=== PATIENT | male | born 1955 | race Caucasian/White ===

== ENCOUNTER 2016-10-08 13:06 | Inpatient (IN) | payer SELFPAY ==
[~2016-10-08] VITALS: Ht 188 cm; Wt 104.5 kg
[2016-10-08] MEDS ORDERED: ONDANSETRON PF 4 MG/2 ML VIAL. IV ONE (13:45)
[2016-10-08] MEDS ORDERED: fentaNYL PF VIAL 100 MCG/2 ML VIAL IV PRN ×2 (13:45→15:30)
[2016-10-08 14:02] LABS: BASO # 0.1 x10^3/uL (0.0-0.2); BASO % 1 % (0-3); EOS % 3 % (0-3); HEMATOCRIT 39.2 % (39.0-53.0); HEMOGLOBIN 13.6 g/dL (13.0-17.5); LYMPH # 1.1 x10^3/uL (1.0-4.8); LYMPH % 23 % (24-48); MEAN CORPUSCULAR HEMOGLOBIN 34 pg (25-35); MEAN CORPUSCULAR HGB CONC 35 g/dL (31-37); MEAN CORPUSCULAR VOLUME 99 fL (79-100); MONO % 12 % (0-9); NEUT % 62 % (31-73); PLATELET COUNT 78 x10^3/uL (140-400); RED BLOOD COUNT 3.96 x10^6/uL (4.30-5.70); RED CELL DISTRIBUTION WIDTH 14.3 % (11.5-14.5)
[2016-10-08 14:09] LABS: INR 1.3 (0.8-1.1); PROTHROMBIN TIME PATIENT 15.3 SEC (11.7-14.0)
[2016-10-08 14:16] LABS: CALCIUM 8.1 mg/dL (8.5-10.1); CREATININE 0.8 mg/dL (0.7-1.3); GFR 97.6; POTASSIUM 4.1 mmol/L (3.5-5.1)
[2016-10-08 14:24] LABS: ALBUMIN 2.6 g/dL (3.4-5.0); ALBUMIN/GLOBULIN RATIO 0.7 (1.0-1.7); TOTAL BILIRUBIN 1.9 mg/dL (0.2-1.0); TOTAL PROTEIN 6.4 g/dL (6.4-8.2)
--- NOTE | 2016-10-08 14:27 | RAD ---
Indication abdominal distention and pain. Duration of symptoms several weeks. A single view of the chest as well as flat and upright films of the abdomen were obtained. Imaging, particularly of the abdomen, is limited by virtue of patient body habitus. Heart size is normal. The lungs are clear of acute infiltrates. There are calcified left hilar lymph nodes. There is no pleural fluid or pneumothorax. There is no free air. The abdominal gas pattern is unremarkable. There are scattered densities in the abdomen likely reflecting barium in colonic diverticula. IMPRESSION: No acute finding seen in the chest or abdomen on plain films.
[2016-10-08] MEDS ORDERED: ONDANSETRON PF 4 MG/2 ML VIAL. IV PRN (15:30)
--- NOTE | 2016-10-08 15:33 | PDOC1 ---
History and Physical Date of Admission Date of Admission DATE: 10/08/16 TIME: 15:25 Identification/Chief Complaint Chief Complaint big abdomen Problems: Source Source: Caregiver, Chart review, Patient History of Present Illness History of Present Illness 61 y.o male, drinking "all his life", 6 beers a day, follows at [facility] but has never seen a GI, admitted for tense ascites, onset 2 mos ago,. NO meds at home, CT scan done outside (I have personally reviewed), showed: extensive ascites, no bowel inflammatory findings, mid sigmoid diverticulosis but no itis, Pt actually wants to go home as soon as he gets the tap, LEgs have piiting edema, rather new to him, also claims no "muscle mass" in arms. HAd a heavy discussion with him about his alcoholism, complications, lack of TRIXIE that has oncotic pressure etc, ALl these seemed news to him. Dtr at bedside VS ok Did note gum bleeding when asked, platelets 70s, Hgb ok INR 1.3 Past Medical History Cardiovascular: No pertinent hx Pulmonary: No pertinent hx GI: No pertinent hx Heme/Onc: No pertinent hx Hepatobiliary: No pertinent hx Psych: No pertinent hx Rheumatologic: No pertinent hx Infectious disease: No pertinent hx ENT: No pertinent hx Renal/: No pertinent hx Endocrine: No pertinent hx Dermatology: No pertinent hx Past Surgical History Past Surgical History: No pertinent history Family History Family History: No Significant (reviewed) Social History Smoke: No ALCOHOL: heavy Drugs: None Current Medications Current Medications Current Medications Fentanyl Citrate (Fentanyl 2ml Vial) 25 mcg PRN Q15MIN PRN IV PAIN GREATER THAN 3/10 Last administered on 10/08/16 14:19; Start 10/08/16 at 13:45; Stop at 13:44 Ondansetron HCl (Zofran) 4 mg 1X ONCE IV Last administered on 10/08/16t 14:17 ; Start 10/08/16 at 13:45; Stop 10/08/16 at 13:46; Status DC Allergies Allergies: Coded Allergies: No Known Drug Allergies (Unverified , 10/08/16) ROS General: No: Chills, Night Sweats, Fatigue, Malaise, Appetite, Other PSYCHOLOGICAL ROS: No: Anxiety, Behavioral Disorder, Concentration difficultie , Decreased libido, Depression, Disorientation, Hallucinations, Hostility, Irritablity, Memory difficulties, Mood Swings, Obsessive thoughts, Physical abuse, Sexual abuse, Sleep disturbances, Suicidal ideation, Other Eyes: No Blurry vision, No Decreased vision, No Double vision, No Dry eyes, No Excessive tearing, No Eye Pain, No Itchy Eyes, No Loss of vision, No Photophobia , No Scotomata, No Uses contacts, No Uses glasses, No Other HEENT: No: Heacaches, Visual Changes, Hearing change, Nasal congestion, Nasal discharge, Oral lesions, Sinus pain, Sore Throat, Epistaxis, Sneezing, Snoring, Tinnitus, Vertigo, Vocal changes, Other ALLERGY AND IMMUNOLOGY: No: Hives, Insect Bite Sensitivity, Itchy/Watery Eyes, Nasal Congestion, Post Nasal Drip, Seasonal Allergies, Other Hematological and Lymphatic: No: Bleeding Problems, Blood Clots, Blood Transfusions, Brusing, Night Sweats, Pallor, Swollen Lymph Nodes, Other ENDOCRINE: No: Breast Changes, Galactorrhea, Hair Pattern Changes, Hot Flashes , Malaise/lethargy, Mood Swings, Palpitations, Polydipsia/polyuria, Skin Changes , Temperature Intolerance, Unexpected Weight Changes, Other Breast: No New/Changing Breast Lumps, No Nipple changes, No Nipple discharge, No Other Respiratory: YES: Shortness of breath, No: Cough, Hemoptysis, Orthopnea, Pleuritic Pain, SOB with excertion, Sputum Changes, Stridor, Tachypnea, Wheezing, Other Cardiovascular: No Chest Pain, No Palpitations, No Orthopnea, No Paroxysmal Noc. Dyspnea, No Edema, No Lt Headedness, No Other Gastrointestinal: Yes Abdominal Pain, Yes Other (ascites) Genitourinary: No Dysuria, No Frequency, No Incontinence, No Hematuria, No Retention, No Discharge, No Urgency, No Pain, No Flank Pain, No Other, No , No , No , No , No , No , No Musculoskeletal: No Gait Disturbance, No Joint Pain, No Joint Stiffness, No Joint Swelling, No Muscle Pain, No Muscular Weakness, No Pain In:, No Swelling In:, No Other Neurological: No Behavorial Changes, No Bowel/Bladder ControlChng, No Confusion , No Dizziness, No Gait Disturbance, No Headaches, No Impaired Coord/balance, No Memory Loss, No Numbness/Tingling, No Seizures, No Speech Problems, No Tremors, No Visual Changes, No Weakness, No Other Skin: No Dry Skin, No Eczema, No Hair Changes, No Lumps, No Mole Changes, No Mottling, No Nail Changes, No Pruritus, No Rash, No Skin Lesion Changes, No Other, No Acne Physical Exam General: Alert, Oriented X3, Cooperative, No acute distress HEENT: Atraumatic, PERRLA, EOMI Lungs: Clear to auscultation, Normal air movement Heart: S1S2, RRR, no thrills, no rubs, no gallops Cardiovascular: S1, S2 Breasts: Normal Abdomen: Soft, Other (tense ascites, positive fluid wave, ) Male Genitals Exam: normal genitalia Rectal Exam: not examined PELVIC: Nml ext genitalia Extremities: Other (plus 2 pitting edema) Skin: No rashes, No breakdown, No significant lesion Neuro: Normal gait, Normal speech, Strength at 5/5 X4 ext, Normal tone, Sensation intact, Cranial nerves 3-12 NL, Reflexes 2+ Vitals Vitals Vital Signs Date Time Temp Pulse Resp B/P (MAP) Pulse Ox O2 Delivery O2 Flow Rate FiO2 10/08/16 14:19 20 95 Room Air 10/08/16 13:34 98.5 79 178/85 (116) 98.5 Labs Labs Laboratory Tests Test 10/08/16 13:47 White Blood Count 5.0 x10^3/uL (4.0-11.0) Red Blood Count 3.96 x10^6/uL (4.30-5.70) Hemoglobin 13.6 g/dL (13.0-17.5) Hematocrit 39.2 % (39.0-53.0) Mean Corpuscular Volume 99 fL (79-100) Mean Corpuscular Hemoglobin 34 pg (25-35) Mean Corpuscular Hemoglobin Concent 35 g/dL (31-37) Red Cell Distribution Width 14.3 % (11.5-14.5) Platelet Count 78 x10^3/uL (140-400) Neutrophils (%) (Auto) 62 % (31-73) Lymphocytes (%) (Auto) 23 % (24-48) Monocytes (%) (Auto) 12 % (0-9) Eosinophils (%) (Auto) 3 % (0-3) Basophils (%) (Auto) 1 % (0-3) Neutrophils # (Auto) 3.1 x10^3uL (1.8-7.7) Lymphocytes # (Auto) 1.1 x10^3/uL (1.0-4.8) Monocytes # (Auto) 0.6 x10^3/uL (0.0-1.1) Eosinophils # (Auto) 0.1 x10^3/uL (0.0-0.7) Basophils # (Auto) 0.1 x10^3/uL (0.0-0.2) Prothrombin Time 15.3 SEC (11.7-14.0) Prothromb Time International Ratio 1.3 (0.8-1.1) Activated Partial Thromboplast Time 32 SEC (24-38) Sodium Level 142 mmol/L (136-145) Potassium Level 4.1 mmol/L (3.5-5.1) Chloride Level 108 mmol/L (98-107) Carbon Dioxide Level 26 mmol/L (21-32) Anion Gap 8 (6-14) Blood Urea Nitrogen 6 mg/dL (8-26) Creatinine 0.8 mg/dL (0.7-1.3) Estimated GFR (Cockcroft-Gault) 97.6 BUN/Creatinine Ratio 8 (6-20) Glucose Level 97 mg/dL (70-99) Calcium Level 8.1 mg/dL (8.5-10.1) Total Bilirubin 1.9 mg/dL (0.2-1.0) Aspartate Amino Transf (AST/SGOT) 75 U/L (15-37) Alanine Aminotransferase (ALT/SGPT) 32 U/L (16-63) Alkaline Phosphatase 149 U/L (46-116) Troponin I Quantitative < 0.017 ng/mL (0.000-0.055) Total Protein 6.4 g/dL (6.4-8.2) Albumin 2.6 g/dL (3.4-5.0) Albumin/Globulin Ratio 0.7 (1.0-1.7) Lipase 97 U/L (73-393) Laboratory Tests Test 10/08/16 13:47 White Blood Count 5.0 x10^3/uL (4.0-11.0) Red Blood Count 3.96 x10^6/uL (4.30-5.70) Hemoglobin 13.6 g/dL (13.0-17.5) Hematocrit 39.2 % (39.0-53.0) Mean Corpuscular Volume 99 fL (79-100) Mean Corpuscular Hemoglobin 34 pg (25-35) Mean Corpuscular Hemoglobin Concent 35 g/dL (31-37) Red Cell Distribution Width 14.3 % (11.5-14.5) Platelet Count 78 x10^3/uL (140-400) Neutrophils (%) (Auto) 62 % (31-73) Lymphocytes (%) (Auto) 23 % (24-48) Monocytes (%) (Auto) 12 % (0-9) Eosinophils (%) (Auto) 3 % (0-3) Basophils (%) (Auto) 1 % (0-3) Neutrophils # (Auto) 3.1 x10^3uL (1.8-7.7) Lymphocytes # (Auto) 1.1 x10^3/uL (1.0-4.8) Monocytes # (Auto) 0.6 x10^3/uL (0.0-1.1) Eosinophils # (Auto) 0.1 x10^3/uL (0.0-0.7) Basophils # (Auto) 0.1 x10^3/uL (0.0-0.2) Prothrombin Time 15.3 SEC (11.7-14.0) Prothromb Time International Ratio 1.3 (0.8-1.1) Activated Partial Thromboplast Time 32 SEC (24-38) Sodium Level 142 mmol/L (136-145) Potassium Level 4.1 mmol/L (3.5-5.1) Chloride Level 108 mmol/L (98-107) Carbon Dioxide Level 26 mmol/L (21-32) Anion Gap 8 (6-14) Blood Urea Nitrogen 6 mg/dL (8-26) Creatinine 0.8 mg/dL (0.7-1.3) Estimated GFR (Cockcroft-Gault) 97.6 BUN/Creatinine Ratio 8 (6-20) Glucose Level 97 mg/dL (70-99) Calcium Level 8.1 mg/dL (8.5-10.1) Total Bilirubin 1.9 mg/dL (0.2-1.0) Aspartate Amino Transf (AST/SGOT) 75 U/L (15-37) Alanine Aminotransferase (ALT/SGPT) 32 U/L (16-63) Alkaline Phosphatase 149 U/L (46-116) Troponin I Quantitative < 0.017 ng/mL (0.000-0.055) Total Protein 6.4 g/dL (6.4-8.2) Albumin 2.6 g/dL (3.4-5.0) Albumin/Globulin Ratio 0.7 (1.0-1.7) Lipase 97 U/L (73-393) VTE Prophylaxis Ordered VTE Prophylaxis Devices: Contraindicated VTE Pharmacological Prophylaxi: Contraindicated Assessment/Plan Assessment/Plan 1. TEnse, large ASCITES 2. Alcoholic lover dse by hx 3. Elevated LFTs and Total bili 4. Mid sigmoid diverticulosis no itis 5. 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 HEavy etohism 7. Plus 2 pitting edema PLAn: Admit NPO post MN Abd paracentesis sean, send for studies Start aldactone 25 qD GI consult CIWA, mvi, librium etc COunselled, heavy MOnitor for further drop of platelets 2 MN MATT OCHOA MD October 08, 2016 15:33
--- NOTE | 2016-10-08 15:37 | EKG ---
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
[2016-10-08] MEDS: PANTOPRAZOLE 40 MG TABLET.DR. PO SCH (16:46)
--- NOTE | 2016-10-08 16:51 | ED.ADGEN ---
Past Medical History Past Medical History: Asthma, High Cholesterol, Hypertension Past Surgical History: Other Additional Past Surgical Histo: BRAIN SURG-STEEL PLATE PLACED/BLOOD CLOT REMOVED Alcohol Use: Heavy Additional Information: 6 PACK A DAY Drug Use: None Adult General Chief Complaint Chief Complaint: ABDOMINAL PAIN HPI HPI Patient is a 61 year old man, history of prolonged alcohol abuse, drinking "a six-pack of beer everyday", COPD, hypertension, who states that he began experiencing increasing swelling in his abdomen and lower extremities about 3 months ago, and was first seen by a primary care provider about one month ago, and was told that he had "liver problems". Patient states that he was told to "come to the emergency department when I started having bad pain". Patient states he is experiencing worsening dyspnea on exertion, and generalized weakness, along with progressively worsening swelling in his legs and abdomen states "I can't take it anymore". Patient states that he has had decreased appetite, nausea and abdominal pain due to increasing abdominal distention. He states he has not previously seen a ichthyology teacher, states that he was told "I need to have the fluid drained off". He is not previously had a paracentesis. He denies any fevers or chills, any injuries, any pain with urination, any vomiting, any diarrhea, any blood in his stool, any similar symptoms previously. He states he is still drinking a sixpack of beer daily, denies any drug or tobacco use. Does not take any anticoagulant medication. Review of Systems Review of Systems Constitutional: Denies fever or chills. [] Eyes: Denies change in visual acuity. [] HENT: Denies nasal congestion or sore throat. [] Respiratory: Denies cough or shortness of breath. [] Cardiovascular: Denies chest pain or edema. [] GI: Abdominal pain and distention, nausea, no vomiting, bloody stools or diarrhea. : Denies dysuria. [] Musculoskeletal: Denies back pain or joint pain. Swelling in the bilateral lower extremities, anasarca. [] Integument: Denies rash. [] Neurologic: Denies headache, focal weakness or sensory changes. [] Endocrine: Denies polyuria or polydipsia. [] Lymphatic: Denies swollen glands. [] Psychiatric: Denies depression or anxiety. [] Current Medications Current Medications Current Medications Medications (Trade) Dose Ordered Sig/Megan Start Time Stop Time Status Last Admin Dose Admin Fentanyl Citrate (Fentanyl 2ml Vial) 50 mcg PRN Q2HR PRN 10/08/16 15:30 Ondansetron HCl (Zofran) 4 mg PRN Q6HRS PRN 10/08/16 15:30 Pantoprazole Sodium (Protonix) 40 mg DAILY 10/08/16 16:00 Spironolactone (Aldactone) 25 mg DAILY 10/09/16 09:00 Allergies Allergies Allergies Coded Allergies Type Severity Reaction Last Updated Verified No Known Drug Allergies 10/08/16 No Physical Exam Physical Exam Constitutional: Well developed, well nourished, no acute distress, appears chronically ill, slightly jaundiced and pale. [] HENT: Normocephalic, atraumatic, bilateral external ears normal, oropharynx moist, no oral exudates, nose normal. [] Eyes: PERRLA, EOMI, conjunctiva normal, no discharge. [] Neck: Normal range of motion, no tenderness, supple, no stridor. [] Cardiovascular:Heart rate regular rhythm, no murmur, S1, S2, no rubs or gallops. [] Lungs & Thorax: Bilateral breath sounds clear to auscultation, no wheezing, rhonchi, rales. [] Abdomen: Bowel sounds normal, soft, patient with positive fluid wave, significant ascites, anasarca, no telangiectasias identified, no masses, no pulsatile masses. [] Skin: Warm, dry, no erythema, no rash. [] Back: No tenderness, no CVA tenderness. [] Extremities: No tenderness, no cyanosis, no clubbing, ROM intact, no edema. [] Neurologic: Alert and oriented X 3, normal motor function, normal sensory function, no focal deficits noted. [] Psychologic: Affect normal, judgement normal, mood normal. [] Current Patient Data Vital Signs Vital Signs Date Time Temp Pulse Resp B/P (MAP) Pulse Ox O2 Delivery O2 Flow Rate FiO2 10/08/16 15:22 70 18 161/89 (113) 95 Room Air 10/08/16 13:34 98.5 98.5 Lab Values Laboratory Tests Test 10/08/16 13:47 White Blood Count 5.0 x10^3/uL (4.0-11.0) Red Blood Count 3.96 x10^6/uL (4.30-5.70) L Hemoglobin 13.6 g/dL (13.0-17.5) Hematocrit 39.2 % (39.0-53.0) Mean Corpuscular Volume 99 fL (79-100) Mean Corpuscular Hemoglobin 34 pg (25-35) Mean Corpuscular Hemoglobin Concent 35 g/dL (31-37) Red Cell Distribution Width 14.3 % (11.5-14.5) Platelet Count 78 x10^3/uL (140-400) L Neutrophils (%) (Auto) 62 % (31-73) Lymphocytes (%) (Auto) 23 % (24-48) L Monocytes (%) (Auto) 12 % (0-9) H Eosinophils (%) (Auto) 3 % (0-3) Basophils (%) (Auto) 1 % (0-3) Neutrophils # (Auto) 3.1 x10^3uL (1.8-7.7) Lymphocytes # (Auto) 1.1 x10^3/uL (1.0-4.8) Monocytes # (Auto) 0.6 x10^3/uL (0.0-1.1) Eosinophils # (Auto) 0.1 x10^3/uL (0.0-0.7) Basophils # (Auto) 0.1 x10^3/uL (0.0-0.2) Prothrombin Time 15.3 SEC (11.7-14.0) H Prothrombin Time INR 1.3 (0.8-1.1) H PTT 32 SEC (24-38) Sodium Level 142 mmol/L (136-145) Potassium Level 4.1 mmol/L (3.5-5.1) Chloride Level 108 mmol/L (98-107) H Carbon Dioxide Level 26 mmol/L (21-32) Anion Gap 8 (6-14) Blood Urea Nitrogen 6 mg/dL (8-26) L Creatinine 0.8 mg/dL (0.7-1.3) Estimated GFR (Cockcroft-Gault) 97.6 BUN/Creatinine Ratio 8 (6-20) Glucose Level 97 mg/dL (70-99) Calcium Level 8.1 mg/dL (8.5-10.1) L Total Bilirubin 1.9 mg/dL (0.2-1.0) H Aspartate Amino Transferase (AST) 75 U/L (15-37) H Alanine Aminotransferase (ALT) 32 U/L (16-63) Alkaline Phosphatase 149 U/L (46-116) H Troponin I Quantitative < 0.017 ng/mL (0.000-0.055) Total Protein 6.4 g/dL (6.4-8.2) Albumin 2.6 g/dL (3.4-5.0) L Albumin/Globulin Ratio 0.7 (1.0-1.7) L Lipase 97 U/L (73-393) Laboratory Tests 10/08/16 13:47 Laboratory Tests 10/08/16 13:47 EKG EKG EC: Sinus rhythm, heart rate 70 beats minute, upright axis, QTC of 433, WV of 204, QRS of 86, contour abnormalities noted in the inferior leads, T-wave inversions in lead 3, contour abnormalities noted in the anterior leads, no ST elevations or depressions, abnormal ECG, does not meet STEMI criteria. As interpreted by me. Radiology/Procedures Radiology/Procedures [][facility] [address] [place] [address] IMAGING REPORT Signed PATIENT: BHARTI ESTEVEZ ACCOUNT: [id number] : 1955 LOCATION: ER AGE: 61 SEX: M EXAM STATUS: REG ER ORD. PHYSICIAN: CHITO NOLASCO DO REASON: abd pain PROCEDURE: ACUTE ABDOMEN SERIES Indication abdominal distention and pain. Duration of symptoms several weeks. A single view of the chest as well as flat and upright films of the abdomen were obtained. Imaging, particularly of the abdomen, is limited by virtue of patient body habitus. Heart size is normal. The lungs are clear of acute infiltrates. There are calcified left hilar lymph nodes. There is no pleural fluid or pneumothorax. There is no free air. The abdominal gas pattern is unremarkable. There are scattered densities in the abdomen likely reflecting barium in colonic diverticula. IMPRESSION: No acute finding seen in the chest or abdomen on plain films. DICTATED and SIGNED BY: LESLI OSBORN MD DATE: 10/08/16 [id number] CC: CHITO NOLASCO DO ~ Course & Med Decision Making Course & Med Decision Making Pertinent Labs and Imaging studies reviewed. (See chart for details) I patient had CT of abdomen and pelvis performed on 09/21/2016, which revealed evidence of ascites. Review of records patient has with him in the emergency department shows the patient has been following at the [facility] for the past month or so, although he is not currently established care with GI, I do have concern for end-stage liver disease with abdominal ascites and anasarca with the patient's examination, and history of alcohol abuse. Patient with profound ascites as stated, no evidence of abdominal compartment syndrome, however he is symptomatic, noted to have elevated bilirubin at 1.9, with elevated LFTs, other laboratory studies are within normal limits. Due to patient 's symptomatic nature, and lack of established follow-up, patient is agreeable for [place] or the hospital for management of his ascites, and evaluation by GI. Findings as above discussed with Dr. Pichardo of internal medicine, patient accepted to his service as a full admission to the medical surgical floor. Patient resting more comfortably after receiving fentanyl in the emergency department, awaiting transport to the MedSurg unit with plan as stated above. Dragon Disclaimer Dragon Disclaimer This electronic medical record was generated, in whole or in part, using a voice recognition dictation system. Departure Impression: Primary Impression: Abdominal pain Additional Impression: Ascites Disposition: 09 ADMITTED INPATIENT Admitting Physician: Michell Pichardo Condition: IMPROVED Problem Qualifiers CHITO NOLASCO DO October 08, 2016 16:51
[2016-10-08] MEDS: chlordiazePOXIDE HCL 25 MG CAPSULE PO SCH ×2 (17:17→23:04)
[2016-10-08] MEDS: MULTIVIT INFUSN,ADULT 4,VIT K 10 ML, THIAMINE 100 MG, FOLIC ACID 1 MG in IV NORMAL SALI... IV SCH (17:18)
--- NOTE | 2016-10-08 17:44 | ACF ---
Admission Forms Criteria ABDOMINAL PAIN Clinical Indications for Admission to Inpatient Care (Place 'X' for any and all applicable criteria): Admission is indicated for ANY ONE of the following(1)(2)(3)(4)(5): [X]I. Inpatient admission required rather than observation care (Also use Abdominal Pain: Observation Care, as appropriate) because of ANY ONE of the following: [ ]a) Severe pain requiring acute inpatient management [X]b) Identification of etiology/finding that requires inpatient care (eg, aortic dissection, free air) [ ]c) Absent bowel sounds with complete ileus(6) [ ]d) Suspected toxic megacolon [ ]e) Severe electrolyte abnormalities requiring inpatient care [ ]f) High fever or infection requiring inpatient admission as indicated by ANY ONE of following(7)(8): [ ] i) Appropriate outpatient or observational care antimicrobial treatment unavailable, not effective, or not feasible [ ] ii) Documented bacteremia [ ] iii) Temperature > 104.9 degrees F (oral) [ ] iv) T >103.1 F (oral) or < 96.8 F(rectal) that does not respond to all emergency treatment measures [ ]g) Signs of intestinal obstruction [B] [ ]h) Hemodynamic instability [ ]i) IV fluid to replace significant ongoing losses (greater than 3 L/m2 per day) (12)(13) [ ]j) Percutaneous or open drainage (eg, abscess, biliary tract ) procedures [ ]k) Parenteral nutrition regimen that must be implemented on inpatient basis [ ]l) Other condition,treatment or monitoring requiring inpatient admission. [ ]II. Peritoneal signs present [ ]III. Surgery needed that cannot be performed on an ambulatory basis. [ ]IV. Evaluation requires patient to not eat or drink for extended period ( eg, more than 24 hours). [ ]V. Contraindications and/or Inappropriate clinical situations for Observational Care in patients with abdominal pain, when ANY ONE of the following is required: [ ]a) Thorough evaluation is required to prevent catastrophic events due to delays in diagnosing (e.g.Mesenteric ischemia) 1,3 [ ]b) Patient with severe pathology or with chronic symptoms unlikely to improve in the ED stay (3) [ ]. General contraindications and/or Inappropriate clinical situations for Observational Care in patients with abdominal pain, when ANY ONE of the following is required: [ ]a) Prediction of prolongation of LOS based on ANY ONE of the following may be considered as a contraindication for observational care 2, 3, 4, 5, 6, 7, 8, 9, 10, 11 [ ]i) Age > 65 yrs. [ ]ii) Patient arriving by ambulance [ ]iii) Patient with high acuity [ ]iv) Patient requiring vital sign monitoring [ ]v) Patient on IV medication [ ]b) Systolic blood pressures 180mmHg 3,12 [ ]c) Patient with altered mental status including delirium and other alteration of consciousness, (3) [ ]d) Patient whose discharge disposition will be to a fpc home or rehabilitation home should not be managed in Emergency Department Observation Unit. CMS rule requires 3 days hospital stay before such placement.3,13 [ ]e) Patient with failure to thrive due to broad array of etiologies 3,16,17 [ ]f) Inability to ambulate 3,14 Extended stay beyond goal length of stay may be needed for(2)(3): [ ]a) Persistent abdominal pain with suspected intra-abdominal process [ ]b) Diagnosed condition requiring continued stay (e.g., pancreatitis, complicated diverticulitis) [ ]c) Surgery (e.g., colectomy) The original [facility] content created by [employer] has been revised. The portions of the content which have been revised are identified through the use of italic text or in bold, and [email or web address] has neither reviewed nor approved the modified material.All other unmodified content is copyright [employer]. Please see references footnoted in the original [facility] edition 2016 Admission Criteria Met?: Yes EMILY MARCUS October 08, 2016 17:44
[2016-10-08 18:00] VITALS: BP 176/98
[2016-10-08 18:06] LABS: BILIRUBIN,URINE NEGATIVE (NEG); GLUCOSE,URINE NEGATIVE (NEG); NITRITE,URINE NEGATIVE (NEG); PROTEIN,URINE NEGATIVE (NEG-TRACE)
[2016-10-08 18:07] LABS: BACTERIA,URINE 0 /HPF (0-FEW); RBC,URINE 0 /HPF (0-2); SQUAMOUS EPITHELIAL CELL,UR FEW /LPF; WBC,URINE OCC /HPF (0-4)
[2016-10-08 18:11] LABS: BARBITURATES NEG (NEG); BENZODIAZEPINES NEG (NEG); CANNABINOIDS POS (NEG); COCAINE NEG (NEG); METHADONE NEG (NEG); OPIATES NEG (NEG); PHENCYCLIDINE NEG (NEG)
[2016-10-08 19:21] VITALS: BP 176/98
[2016-10-08 22:52] VITALS: BP 134/70
[2016-10-09 03:25] VITALS: BP 130/76
[2016-10-09] MEDS: chlordiazePOXIDE HCL 25 MG CAPSULE PO SCH ×4 (04:09→22:47)
[2016-10-09 07:00] VITALS: BP 136/68
[2016-10-09] MEDS: PANTOPRAZOLE 40 MG TABLET.DR. PO SCH (09:00)
[2016-10-09] MEDS ORDERED: SPIRONOLACTONE 25 MG TABLET PO SCH (09:00)
--- NOTE | 2016-10-09 09:13 | PDOC2 ---
GI CONSULT Reason For Consult: Ascites HPI: HPI: 61 y/o male admitted through the ER, reports abdominal distention/discomfort, swelling in lower legs, and muscle-wasting x 2 months. Takes ASA 325mg QD and also tried Pepto-Bismol for awhile. Had a CT scan as an outpatient, per other notes showed ascites and diverticulosis. Long history of alcohol use, about 6 beers daily ("sometimes more, sometimes less"). Tried to quit years ago after a DUI. Significant labs: plt 78, bili 1.9, AST 75, Alk Phos 149, INR 1.3, tox screen +cannabinoids and alcohol. Kept NPO this morning for paracentesis. Also started on PPI and Aldactone 25mg QD. Denies n/v, reflux/heartburn, dysphagia, diarrhea, constipation, or change in appetite. No previous EGD or colonoscopy. Previous took NSAIDs frequently, stopped ~10 years ago. PMH: PMH: HLD, ascites, diverticulosis, brain surgery for clot FH: Family History: Hyperlipidemia Social History: Smoke: Quit ALCOHOL: heavy (about 6 beers daily) Drugs: Marijuana ROS: GEN: Denies fevers, chills, sweats HEENT: Denies blurred vision, sore throat CV: Denies chest pain RESP: Denies shortness of air, cough GI: Per HPI : Denies hematuria, dysuria ENDO: +fluctuating weight NEURO: Denies confusion, dizziness MSK: +joint pains +weakness SKIN: Denies jaundice, pruritus Vitals: Vitals: Vital Signs Date Time Temp Pulse Resp B/P (MAP) Pulse Ox O2 Delivery O2 Flow Rate FiO2 10/09/16 07:00 98.3 70 20 136/68 (90) 95 Room Air 98.3 Labs: Labs: Laboratory Tests Test 10/08/16 13:47 10/08/16 17:55 White Blood Count 5.0 x10^3/uL (4.0-11.0) Red Blood Count 3.96 x10^6/uL (4.30-5.70) Hemoglobin 13.6 g/dL (13.0-17.5) Hematocrit 39.2 % (39.0-53.0) Mean Corpuscular Volume 99 fL (79-100) Mean Corpuscular Hemoglobin 34 pg (25-35) Mean Corpuscular Hemoglobin Concent 35 g/dL (31-37) Red Cell Distribution Width 14.3 % (11.5-14.5) Platelet Count 78 x10^3/uL (140-400) Neutrophils (%) (Auto) 62 % (31-73) Lymphocytes (%) (Auto) 23 % (24-48) Monocytes (%) (Auto) 12 % (0-9) Eosinophils (%) (Auto) 3 % (0-3) Basophils (%) (Auto) 1 % (0-3) Neutrophils # (Auto) 3.1 x10^3uL (1.8-7.7) Lymphocytes # (Auto) 1.1 x10^3/uL (1.0-4.8) Monocytes # (Auto) 0.6 x10^3/uL (0.0-1.1) Eosinophils # (Auto) 0.1 x10^3/uL (0.0-0.7) Basophils # (Auto) 0.1 x10^3/uL (0.0-0.2) Prothrombin Time 15.3 SEC (11.7-14.0) Prothromb Time International Ratio 1.3 (0.8-1.1) Activated Partial Thromboplast Time 32 SEC (24-38) Sodium Level 142 mmol/L (136-145) Potassium Level 4.1 mmol/L (3.5-5.1) Chloride Level 108 mmol/L (98-107) Carbon Dioxide Level 26 mmol/L (21-32) Anion Gap 8 (6-14) Blood Urea Nitrogen 6 mg/dL (8-26) Creatinine 0.8 mg/dL (0.7-1.3) Estimated GFR (Cockcroft-Gault) 97.6 BUN/Creatinine Ratio 8 (6-20) Glucose Level 97 mg/dL (70-99) Calcium Level 8.1 mg/dL (8.5-10.1) Total Bilirubin 1.9 mg/dL (0.2-1.0) Aspartate Amino Transf (AST/SGOT) 75 U/L (15-37) Alanine Aminotransferase (ALT/SGPT) 32 U/L (16-63) Alkaline Phosphatase 149 U/L (46-116) Troponin I Quantitative < 0.017 ng/mL (0.000-0.055) Total Protein 6.4 g/dL (6.4-8.2) Albumin 2.6 g/dL (3.4-5.0) Albumin/Globulin Ratio 0.7 (1.0-1.7) Lipase 97 U/L (73-393) Urine Collection Type Unknown Urine Color Yellow Urine Clarity Clear Urine pH 6.0 Urine Specific [place] 1.010 Urine Protein Negative mg/dL (NEG-TRACE) Urine Glucose (UA) Negative mg/dL (NEG) Urine Ketones (Stick) Negative mg/dL (NEG) Urine Blood Negative (NEG) Urine Nitrite Negative (NEG) Urine Bilirubin Negative (NEG) Urine Urobilinogen Dipstick 1.0 mg/dL (0.2 mg/dL) Urine Leukocyte Esterase Negative (NEG) Urine RBC 0 /HPF (0-2) Urine WBC Occ /HPF (0-4) Urine Squamous Epithelial Cells Few /LPF Urine Bacteria 0 /HPF (0-FEW) Urine Mucus Slight /LPF Urine Opiates Screen Neg (NEG) Urine Methadone Screen Neg (NEG) Urine Barbiturates Neg (NEG) Urine Phencyclidine Screen Neg (NEG) Urine Amphetamine/Methamphetamine Neg (NEG) Urine Benzodiazepines Screen Neg (NEG) Urine Cocaine Screen Neg (NEG) Urine Cannabinoids Screen Pos (NEG) Urine Ethyl Alcohol Pos (NEG) Allergies: Coded Allergies: No Known Drug Allergies (Unverified , 10/08/16) Medications: Current Medications Medications (Trade) Dose Ordered Sig/Megan Route PRN Reason Start Time Stop Time Status Last Admin Dose Admin Fentanyl Citrate (Fentanyl 2ml Vial) 25 mcg PRN Q15MIN PRN IV PAIN GREATER THAN 3/10 10/08/16 13:45 10/09/16 13:44 10/08/16 14:19 Ondansetron HCl (Zofran) 4 mg 1X ONCE IV 10/08/16 13:45 10/08/16 13:46 DC 10/08/16 14:17 Pantoprazole Sodium (Protonix) 40 mg DAILY PO 10/08/16 16:00 10/08/16 16:46 Multivitamins 10 ml/Thiamine HCl 100 mg/Folic Acid 1 mg/Sodium Chloride 1,011.2 ml @ 100 mls/ hr DAILY IV 10/08/16 17:00 10/14/16 16:59 10/08/16 17:18 Chlordiazepoxide (Librium) 25 mg Q6H PO 10/08/16 16:45 10/09/16 22:46 10/08/16 23:04 Imaging: Imaging: Acute Abd Series Imaging, particularly of the abdomen, is limited by virtue of patient body habitus. Heart size is normal. The lungs are clear of acute infiltrates. There are calcified left hilar lymph nodes. There is no pleural fluid or pneumothorax. There is no free air. The abdominal gas pattern is unremarkable. There are scattered densities in the abdomen likely reflecting barium in colonic diverticula. IMPRESSION: No acute finding seen in the chest or abdomen on plain films. PE: GEN: NAD HEENT: Atraumatic, PERRL LUNGS: CTAB HEART: RRR ABD: distended, tight, non-tender, BS+ EXTREMITY: pitting BLE edema SKIN: No rashes, no jaundice NEURO/PSYCH: A & O 3 A/P: A/P: Alcohol abuse, ascites, weight loss -averages 6 beers daily -abd distention x 2 months, outside CT showed ascites Thrombocytopenia, abnormal LFTs CRC screen -no previous colonoscopy -- Await paracentesis. Increase Aldactone to 100mg QD. Check Hepatitis panel and iron profile. Abd US as well. MELANIA FARLEY October 09, 2016 09:13
--- NOTE | 2016-10-09 09:44 | PDOC ---
PROGRESS NOTES Chief Complaint Chief Complaint 1. TEnse, large ASCITES 2. Alcoholic lover dse by hx 3. Elevated LFTs and Total bili 4. Mid sigmoid diverticulosis no itis 5. 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 HEavy etohism 7. Plus 2 pitting edema History of Present Illness History of Present Illness Walking around room Scheduled for paracentesis later PM NO acute events overnight GI note reviewed US abd, iron panel and to inc aldactone to 100qD PLAN: TAp later Send for ascitic fluid stuides Follow GI recs- US abd, iron panel, inc aldactone dose Might need albumin IV post tap if large vol paracentesis Dw pt Vitals Vitals Vital Signs Date Time Temp Pulse Resp B/P (MAP) Pulse Ox O2 Delivery O2 Flow Rate FiO2 10/09/16 08:00 Room Air 10/09/16 07:00 98.3 70 20 136/68 (90) 95 98.3 Physical Exam General: Alert, Oriented X3, Cooperative, No acute distress Heart: Regular rate Lungs: Clear Abdomen: Soft, Other (tense ascites, positive fluid wave, ) Extremities: Other (plus 2 pitting edema) Skin: No rashes, No breakdown, No significant lesion Labs LABS Laboratory Tests Test 10/08/16 13:47 10/08/16 17:55 White Blood Count 5.0 x10^3/uL (4.0-11.0) Red Blood Count 3.96 x10^6/uL (4.30-5.70) Hemoglobin 13.6 g/dL (13.0-17.5) Hematocrit 39.2 % (39.0-53.0) Mean Corpuscular Volume 99 fL (79-100) Mean Corpuscular Hemoglobin 34 pg (25-35) Mean Corpuscular Hemoglobin Concent 35 g/dL (31-37) Red Cell Distribution Width 14.3 % (11.5-14.5) Platelet Count 78 x10^3/uL (140-400) Neutrophils (%) (Auto) 62 % (31-73) Lymphocytes (%) (Auto) 23 % (24-48) Monocytes (%) (Auto) 12 % (0-9) Eosinophils (%) (Auto) 3 % (0-3) Basophils (%) (Auto) 1 % (0-3) Neutrophils # (Auto) 3.1 x10^3uL (1.8-7.7) Lymphocytes # (Auto) 1.1 x10^3/uL (1.0-4.8) Monocytes # (Auto) 0.6 x10^3/uL (0.0-1.1) Eosinophils # (Auto) 0.1 x10^3/uL (0.0-0.7) Basophils # (Auto) 0.1 x10^3/uL (0.0-0.2) Prothrombin Time 15.3 SEC (11.7-14.0) Prothromb Time International Ratio 1.3 (0.8-1.1) Activated Partial Thromboplast Time 32 SEC (24-38) Sodium Level 142 mmol/L (136-145) Potassium Level 4.1 mmol/L (3.5-5.1) Chloride Level 108 mmol/L (98-107) Carbon Dioxide Level 26 mmol/L (21-32) Anion Gap 8 (6-14) Blood Urea Nitrogen 6 mg/dL (8-26) Creatinine 0.8 mg/dL (0.7-1.3) Estimated GFR (Cockcroft-Gault) 97.6 BUN/Creatinine Ratio 8 (6-20) Glucose Level 97 mg/dL (70-99) Calcium Level 8.1 mg/dL (8.5-10.1) Total Bilirubin 1.9 mg/dL (0.2-1.0) Aspartate Amino Transf (AST/SGOT) 75 U/L (15-37) Alanine Aminotransferase (ALT/SGPT) 32 U/L (16-63) Alkaline Phosphatase 149 U/L (46-116) Troponin I Quantitative < 0.017 ng/mL (0.000-0.055) Total Protein 6.4 g/dL (6.4-8.2) Albumin 2.6 g/dL (3.4-5.0) Albumin/Globulin Ratio 0.7 (1.0-1.7) Lipase 97 U/L (73-393) Urine Collection Type Unknown Urine Color Yellow Urine Clarity Clear Urine pH 6.0 Urine Specific [place] 1.010 Urine Protein Negative mg/dL (NEG-TRACE) Urine Glucose (UA) Negative mg/dL (NEG) Urine Ketones (Stick) Negative mg/dL (NEG) Urine Blood Negative (NEG) Urine Nitrite Negative (NEG) Urine Bilirubin Negative (NEG) Urine Urobilinogen Dipstick 1.0 mg/dL (0.2 mg/dL) Urine Leukocyte Esterase Negative (NEG) Urine RBC 0 /HPF (0-2) Urine WBC Occ /HPF (0-4) Urine Squamous Epithelial Cells Few /LPF Urine Bacteria 0 /HPF (0-FEW) Urine Mucus Slight /LPF Urine Opiates Screen Neg (NEG) Urine Methadone Screen Neg (NEG) Urine Barbiturates Neg (NEG) Urine Phencyclidine Screen Neg (NEG) Urine Amphetamine/Methamphetamine Neg (NEG) Urine Benzodiazepines Screen Neg (NEG) Urine Cocaine Screen Neg (NEG) Urine Cannabinoids Screen Pos (NEG) Urine Ethyl Alcohol Pos (NEG) Review of Systems Review of Systems no abd pain, n.v.d, cp, no more soa Assessment and Plan Assessmemt and Plan Problems Medical Problems: (1) Ascites Status: Acute Problems: Comment Review of Relevant I have reviewed the following items rajeev (where applicable) has been applied. Labs Laboratory Tests Test 10/08/16 13:47 10/08/16 17:55 White Blood Count 5.0 x10^3/uL (4.0-11.0) Red Blood Count 3.96 x10^6/uL (4.30-5.70) Hemoglobin 13.6 g/dL (13.0-17.5) Hematocrit 39.2 % (39.0-53.0) Mean Corpuscular Volume 99 fL (79-100) Mean Corpuscular Hemoglobin 34 pg (25-35) Mean Corpuscular Hemoglobin Concent 35 g/dL (31-37) Red Cell Distribution Width 14.3 % (11.5-14.5) Platelet Count 78 x10^3/uL (140-400) Neutrophils (%) (Auto) 62 % (31-73) Lymphocytes (%) (Auto) 23 % (24-48) Monocytes (%) (Auto) 12 % (0-9) Eosinophils (%) (Auto) 3 % (0-3) Basophils (%) (Auto) 1 % (0-3) Neutrophils # (Auto) 3.1 x10^3uL (1.8-7.7) Lymphocytes # (Auto) 1.1 x10^3/uL (1.0-4.8) Monocytes # (Auto) 0.6 x10^3/uL (0.0-1.1) Eosinophils # (Auto) 0.1 x10^3/uL (0.0-0.7) Basophils # (Auto) 0.1 x10^3/uL (0.0-0.2) Prothrombin Time 15.3 SEC (11.7-14.0) Prothromb Time International Ratio 1.3 (0.8-1.1) Activated Partial Thromboplast Time 32 SEC (24-38) Sodium Level 142 mmol/L (136-145) Potassium Level 4.1 mmol/L (3.5-5.1) Chloride Level 108 mmol/L (98-107) Carbon Dioxide Level 26 mmol/L (21-32) Anion Gap 8 (6-14) Blood Urea Nitrogen 6 mg/dL (8-26) Creatinine 0.8 mg/dL (0.7-1.3) Estimated GFR (Cockcroft-Gault) 97.6 BUN/Creatinine Ratio 8 (6-20) Glucose Level 97 mg/dL (70-99) Calcium Level 8.1 mg/dL (8.5-10.1) Total Bilirubin 1.9 mg/dL (0.2-1.0) Aspartate Amino Transf (AST/SGOT) 75 U/L (15-37) Alanine Aminotransferase (ALT/SGPT) 32 U/L (16-63) Alkaline Phosphatase 149 U/L (46-116) Troponin I Quantitative < 0.017 ng/mL (0.000-0.055) Total Protein 6.4 g/dL (6.4-8.2) Albumin 2.6 g/dL (3.4-5.0) Albumin/Globulin Ratio 0.7 (1.0-1.7) Lipase 97 U/L (73-393) Urine Collection Type Unknown Urine Color Yellow Urine Clarity Clear Urine pH 6.0 Urine Specific [place] 1.010 Urine Protein Negative mg/dL (NEG-TRACE) Urine Glucose (UA) Negative mg/dL (NEG) Urine Ketones (Stick) Negative mg/dL (NEG) Urine Blood Negative (NEG) Urine Nitrite Negative (NEG) Urine Bilirubin Negative (NEG) Urine Urobilinogen Dipstick 1.0 mg/dL (0.2 mg/dL) Urine Leukocyte Esterase Negative (NEG) Urine RBC 0 /HPF (0-2) Urine WBC Occ /HPF (0-4) Urine Squamous Epithelial Cells Few /LPF Urine Bacteria 0 /HPF (0-FEW) Urine Mucus Slight /LPF Urine Opiates Screen Neg (NEG) Urine Methadone Screen Neg (NEG) Urine Barbiturates Neg (NEG) Urine Phencyclidine Screen Neg (NEG) Urine Amphetamine/Methamphetamine Neg (NEG) Urine Benzodiazepines Screen Neg (NEG) Urine Cocaine Screen Neg (NEG) Urine Cannabinoids Screen Pos (NEG) Urine Ethyl Alcohol Pos (NEG) Laboratory Tests Test 10/08/16 13:47 10/08/16 17:55 White Blood Count 5.0 x10^3/uL (4.0-11.0) Red Blood Count 3.96 x10^6/uL (4.30-5.70) Hemoglobin 13.6 g/dL (13.0-17.5) Hematocrit 39.2 % (39.0-53.0) Mean Corpuscular Volume 99 fL (79-100) Mean Corpuscular Hemoglobin 34 pg (25-35) Mean Corpuscular Hemoglobin Concent 35 g/dL (31-37) Red Cell Distribution Width 14.3 % (11.5-14.5) Platelet Count 78 x10^3/uL (140-400) Neutrophils (%) (Auto) 62 % (31-73) Lymphocytes (%) (Auto) 23 % (24-48) Monocytes (%) (Auto) 12 % (0-9) Eosinophils (%) (Auto) 3 % (0-3) Basophils (%) (Auto) 1 % (0-3) Neutrophils # (Auto) 3.1 x10^3uL (1.8-7.7) Lymphocytes # (Auto) 1.1 x10^3/uL (1.0-4.8) Monocytes # (Auto) 0.6 x10^3/uL (0.0-1.1) Eosinophils # (Auto) 0.1 x10^3/uL (0.0-0.7) Basophils # (Auto) 0.1 x10^3/uL (0.0-0.2) Prothrombin Time 15.3 SEC (11.7-14.0) Prothromb Time International Ratio 1.3 (0.8-1.1) Activated Partial Thromboplast Time 32 SEC (24-38) Sodium Level 142 mmol/L (136-145) Potassium Level 4.1 mmol/L (3.5-5.1) Chloride Level 108 mmol/L (98-107) Carbon Dioxide Level 26 mmol/L (21-32) Anion Gap 8 (6-14) Blood Urea Nitrogen 6 mg/dL (8-26) Creatinine 0.8 mg/dL (0.7-1.3) Estimated GFR (Cockcroft-Gault) 97.6 BUN/Creatinine Ratio 8 (6-20) Glucose Level 97 mg/dL (70-99) Calcium Level 8.1 mg/dL (8.5-10.1) Total Bilirubin 1.9 mg/dL (0.2-1.0) Aspartate Amino Transf (AST/SGOT) 75 U/L (15-37) Alanine Aminotransferase (ALT/SGPT) 32 U/L (16-63) Alkaline Phosphatase 149 U/L (46-116) Troponin I Quantitative < 0.017 ng/mL (0.000-0.055) Total Protein 6.4 g/dL (6.4-8.2) Albumin 2.6 g/dL (3.4-5.0) Albumin/Globulin Ratio 0.7 (1.0-1.7) Lipase 97 U/L (73-393) Urine Collection Type Unknown Urine Color Yellow Urine Clarity Clear Urine pH 6.0 Urine Specific [place] 1.010 Urine Protein Negative mg/dL (NEG-TRACE) Urine Glucose (UA) Negative mg/dL (NEG) Urine Ketones (Stick) Negative mg/dL (NEG) Urine Blood Negative (NEG) Urine Nitrite Negative (NEG) Urine Bilirubin Negative (NEG) Urine Urobilinogen Dipstick 1.0 mg/dL (0.2 mg/dL) Urine Leukocyte Esterase Negative (NEG) Urine RBC 0 /HPF (0-2) Urine WBC Occ /HPF (0-4) Urine Squamous Epithelial Cells Few /LPF Urine Bacteria 0 /HPF (0-FEW) Urine Mucus Slight /LPF Urine Opiates Screen Neg (NEG) Urine Methadone Screen Neg (NEG) Urine Barbiturates Neg (NEG) Urine Phencyclidine Screen Neg (NEG) Urine Amphetamine/Methamphetamine Neg (NEG) Urine Benzodiazepines Screen Neg (NEG) Urine Cocaine Screen Neg (NEG) Urine Cannabinoids Screen Pos (NEG) Urine Ethyl Alcohol Pos (NEG) Medications Current Medications Fentanyl Citrate (Fentanyl 2ml Vial) 25 mcg PRN Q15MIN PRN IV PAIN GREATER THAN 3/10 Last administered on 10/08/16 14:19; Start 10/08/16 at 13:45; Stop at 13:44 Ondansetron HCl (Zofran) 4 mg 1X ONCE IV Last administered on 10/08/16 14:17 ; Start 10/08/16 at 13:45; Stop 10/08/16 at 13:46; Status DC Spironolactone (Aldactone) 25 mg DAILY PO ; Start 10/09/16 at 09:00; Stop at 09:33; Status DC Fentanyl Citrate (Fentanyl 2ml Vial) 50 mcg PRN Q2HR PRN IV pain; Start at 15:30 Ondansetron HCl (Zofran) 4 mg PRN Q6HRS PRN IV NAUSEA/VOMITING; Start 10/08/16 at 15:30 Pantoprazole Sodium (Protonix) 40 mg DAILY PO Last administered on 10/08/16 16 :46; Start 10/08/16 at 16:00 Multivitamins 10 ml/Thiamine HCl 100 mg/Folic Acid 1 mg/Sodium Chloride 1,011.2 ml @ 100 mls/ hr DAILY IV Last administered on 10/08/16 17:18; Start at 17:00; Stop 10/14/16 at 16:59 Chlordiazepoxide (Librium) 25 mg Q6H PO Last administered on 10/08/16 23:04; Start 10/08/16 at 16:45; Stop 10/09/16 at 22:46 Spironolactone (Aldactone) 100 mg DAILY PO ; Start 10/09/16 at 10:00 Vitals/I & O Vital Sign - Last 24 Hours 10/08/16 10/08/16 10/08/16 10/08/16 13:34 14:02 14:19 14:22 Temp 98.5 98.5 Pulse 79 74 72 Resp 20 23 20 22 B/P (MAP) 178/85 (116) 164/101 (122) 177/105 (129) Pulse Ox 98 97 95 94 O2 Delivery Room Air Room Air Room Air Room Air 10/08/16 10/08/16 10/08/1610/08/17 14:49 14:52 15:22 15:52 Pulse 70 70 66 Resp 18 20 18 23 B/P (MAP) 178/96 (123) 161/89 (113) 182/93 (122) Pulse Ox 95 95 93 O2 Delivery Room Air Room Air Room Air Room Air 10/08/16 10/08/16 10/08/16 10/08/16 16:22 16:52 17:22 17:30 Pulse 66 66 74 76 Resp 17 12 17 23 B/P (MAP) 157/86 (109) 168/89 (115) 179/94 (122) 223/95 (137) Pulse Ox 94 94 94 94 O2 Delivery Room Air Room Air Room Air Room Air 10/08/16 10/08/16 10/08/16 10/08/16 18:00 19:21 20:00 22:52 Temp 98.6 98.6 98.8 98.6 98.6 98.8 Pulse 90 90 64 Resp 20 20 18 B/P (MAP) 176/98 (124) 176/98 (124) 134/70 (91) Pulse Ox 95 97 O2 Delivery Room Air Room Air Room Air Room Air 10/09/16 10/09/16 10/09/16 03:25 07:00 08:00 Temp 98.3 98.3 Pulse 64 70 Resp 18 20 B/P (MAP) 130/76 (94) 136/68 (90) Pulse Ox 100 95 O2 Delivery Room Air Room Air Room Air Intake and Output 10/08/16 10/08/16 10/09/16 15:00 23:00 07:00 Intake Total 120 ml 0 ml Balance 120 ml 0 ml MATT OCHOA MD October 09, 2016 09:44
[2016-10-09] MEDS: SPIRONOLACTONE 25 MG TABLET PO SCH (10:00)
[2016-10-09 11:00] VITALS: BP 141/65
[2016-10-09] MEDS: MULTIVIT INFUSN,ADULT 4,VIT K 10 ML, THIAMINE 100 MG, FOLIC ACID 1 MG in IV NORMAL SALI... IV SCH (11:00)
--- NOTE | 2016-10-09 11:25 | RAD ---
Right upper quadrant abdominal ultrasound, 10/09/2016: History: Ascites There is a moderate volume of ascites. The gallbladder is somewhat contracted. It contains echogenic foci with posterior acoustic shadowing compatible with gallstones. Its wall is thickened measuring approximately 1 cm. No bile duct dilatation is evident. No hepatic mass is seen. There is mild irregularity of the hepatic margins suggesting cirrhosis. The pancreas was obscured by overlying bowel. The visualized portions of the right kidney are unremarkable. IMPRESSION: 1. Moderate volume of ascites. 2. Contracted gallbladder containing gallstones with gallbladder wall thickening. This thickening can be due to a variety of causes including liver disease, renal disease, hypoproteinemia or cholecystitis. 3. Probable hepatic cirrhosis.
[2016-10-09 11:29] LABS: % SAT IRON 95 % (15-34); IRON,SERUM 224 ug/dL (65-175)
[2016-10-09] MEDS ORDERED: LIDOCAINE 1% / SOD BICARB 8.4% 20 ML VIAL. IJ ONE ×2 (13:26→14:00)
[2016-10-09] MEDS ORDERED: ALBUMIN HUMAN 25% 200 ML IV ONE (13:53)
--- NOTE | 2016-10-09 14:04 | PDOC ---
MODERATE SEDATION ASSESSMENT RISKS/ALTERNATIVES Risks/Alternatives Risks and alternatives of this type of sedation and procedure discussed with: RISK/ALTERNATIVES: Patient H & P ON CHART H & P H & P on chart and reviewed for co-morbid conditions and appropriate labs. H&P ON CHART: Yes STATUS PREG STATUS ASSESSED: N/A MEDS/ALLERGIES REVIEWED Meds/Allergies Reviewed Medications and Allergies including time and route of recently administered narcotics and sedatives. MEDS/ALLERGIES REVIEWED: Yes ASA RATING ASA RATING: II AIRWAY ASSESSMENT Airway Assessment Airway patency, oral function limitations, presence of caps, crowns, dentures, partials, and ability to extend neck assessed. AIRWAY ASSESSMENT: Yes MALLAMPATI SCORE MALLAMPATI SCORE: II PRE-SEDATION ASSESSMENT PRE-SEDATION ASSESSMENT: Yes DARRELL CASTILLO MD October 09, 2016 14:04
--- NOTE | 2016-10-09 14:11 | PDOC ---
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 Given h/o daily ETOH intake for multiple years, cirrhosis with portal HTN likely underlying cause. He gives no h/o CHF or Renal failure. Post-Procedure Diagnosis Post-Procedure Diagnosis Same Procedure Performed Procedure Performed Sono guided Dx/Tx paracentesis Type of Anesthesia Type of Anesthesia Local Estimated Blood Loss EBL: Trace Specimens Specimans 14,400 cc straw-clear ascites removed---samples to lab per protocol Condition of Patient Condition of Patient No apparent complication. Infusion of 50 grams 25% albumin initiated during paracentesis procedure. Disposition Disposition From IR return to [facility]. F/u with HIMS and GI. Full report to follow. DARRELL CASTILLO MD October 09, 2016 14:11
[2016-10-09] MEDS ORDERED: ALBUMIN HUMAN 25% 100 ML IV ONE ×2 (14:30)
[2016-10-09 15:00] VITALS: BP 139/70
[2016-10-09 15:10] LABS: ALBUMIN 2.7 g/dL (3.4-5.0); TOTAL PROTEIN 6.2 g/dL (6.4-8.2)
[2016-10-09 16:07] LABS: BF CLARITY CLEAR; BF COLOR YELLOW
--- NOTE | 2016-10-09 16:09 | RAD ---
Ultrasound-guided diagnostic and therapeutic paracentesis Indication: 61-year-old male with peripheral edema and massive ascites, progressing slowly over the last 2 months. He reports daily alcohol intake, which would raise the question of cirrhosis with portal hypertension as the underlying etiology of his ascites. He gives no history of congestive heart failure and no history of renal failure. Image guided diagnostic and therapeutic paracentesis has been requested. Anesthesia: Local only Procedure: Informed consent was obtained from the patient. This procedure was performed in the angiography suite, with the patient in his hospital bed. Preliminary ultrasound examination confirmed the presence of a large volume of abdominal/pelvic ascites. A right lateral abdominal peritoneal fluid collection, suitable for sono guided paracentesis, was selected, was marked, and was documented with a single hard copy ultrasound image. That area was then prepped and draped in the usual sterile fashion. Using aseptic technique, local anesthesia, and direct sterile ultrasound guidance, a 21-gauge micropuncture needle was successfully introduced into the selected peritoneal fluid collection. The 21-gauge needle was exchanged over a microguidewire for a micropuncture sheath, which was, in turn, exchanged over a 0.035 inch guidewire for an 8 Maori drainage catheter. Approximately 14,400 cc of straw-clear ascites was removed, samples which were submitted to the clinical laboratory per routine protocol. The drainage catheter was then removed and a sterile dressing was applied. Patient tolerated the procedure well without apparent complication. Infusion of 50 g 25% albumin was initiated during the paracentesis procedure. Impression: Successful, uneventful ultrasound-guided diagnostic and therapeutic paracentesis, as described.
[2016-10-09 19:15] VITALS: BP 125/65
[2016-10-09] MEDS: HYDROcodone/APAP 5/325MG 1 TAB TABLET PO PRN (20:43)
[2016-10-09 22:11] LABS: HEP A IGM ABDY Negative (Negative)
[2016-10-09 23:13] VITALS: BP 116/63
[2016-10-10 03:17] VITALS: BP 120/62
[2016-10-10 07:00] VITALS: BP 106/58
[2016-10-10] MEDS: PANTOPRAZOLE 40 MG TABLET.DR. PO SCH (08:15)
[2016-10-10] MEDS: SPIRONOLACTONE 25 MG TABLET PO SCH (08:15)
[2016-10-10] MEDS: MULTIVIT INFUSN,ADULT 4,VIT K 10 ML, THIAMINE 100 MG, FOLIC ACID 1 MG in IV NORMAL SALI... IV SCH (09:33)
--- NOTE | 2016-10-10 10:31 | PDOC ---
G I PROGRESS NOTE Subjective Doing better after tap. LE edema much better. Denies FH of liver disease or high-risk behavior for HCV, but has friends with. Physical Exam Lungs clear. RRR Abdomen with some ascites, not tender. No pretibial edema. Review of Relevant I have reviewed the following items rajeev (where applicable) has been applied. Labs Laboratory Tests Test 10/08/16 13:47 10/08/16 17:55 10/09/16 10:00 10/09/16 13:50 White Blood Count 5.0 x10^3/uL (4.0-11.0) Red Blood Count 3.96 x10^6/uL (4.30-5.70) Hemoglobin 13.6 g/dL (13.0-17.5) Hematocrit 39.2 % (39.0-53.0) Mean Corpuscular Volume 99 fL (79-100) Mean Corpuscular Hemoglobin 34 pg (25-35) Mean Corpuscular Hemoglobin Concent 35 g/dL (31-37) Red Cell Distribution Width 14.3 % (11.5-14.5) Platelet Count 78 x10^3/uL (140-400) Neutrophils (%) (Auto) 62 % (31-73) Lymphocytes (%) (Auto) 23 % (24-48) Monocytes (%) (Auto) 12 % (0-9) Eosinophils (%) (Auto) 3 % (0-3) Basophils (%) (Auto) 1 % (0-3) Neutrophils # (Auto) 3.1 x10^3uL (1.8-7.7) Lymphocytes # (Auto) 1.1 x10^3/uL (1.0-4.8) Monocytes # (Auto) 0.6 x10^3/uL (0.0-1.1) Eosinophils # (Auto) 0.1 x10^3/uL (0.0-0.7) Basophils # (Auto) 0.1 x10^3/uL (0.0-0.2) Prothrombin Time 15.3 SEC (11.7-14.0) Prothromb Time International Ratio 1.3 (0.8-1.1) Activated Partial Thromboplast Time 32 SEC (24-38) Sodium Level 142 mmol/L (136-145) Potassium Level 4.1 mmol/L (3.5-5.1) Chloride Level 108 mmol/L (98-107) Carbon Dioxide Level 26 mmol/L (21-32) Anion Gap 8 (6-14) Blood Urea Nitrogen 6 mg/dL (8-26) Creatinine 0.8 mg/dL (0.7-1.3) Estimated GFR (Cockcroft-Gault) 97.6 BUN/Creatinine Ratio 8 (6-20) Glucose Level 97 mg/dL (70-99) Calcium Level 8.1 mg/dL (8.5-10.1) Total Bilirubin 1.9 mg/dL (0.2-1.0) Aspartate Amino Transf (AST/SGOT) 75 U/L (15-37) Alanine Aminotransferase (ALT/SGPT) 32 U/L (16-63) Alkaline Phosphatase 149 U/L (46-116) Troponin I Quantitative < 0.017 ng/mL (0.000-0.055) Total Protein 6.4 g/dL (6.4-8.2) 6.2 g/dL (6.4-8.2) Albumin 2.6 g/dL (3.4-5.0) 2.7 g/dL (3.4-5.0) Albumin/Globulin Ratio 0.7 (1.0-1.7) Lipase 97 U/L (73-393) Urine Collection Type Unknown Urine Color Yellow Urine Clarity Clear Urine pH 6.0 Urine Specific [place] 1.010 Urine Protein Negative mg/dL (NEG-TRACE) Urine Glucose (UA) Negative mg/dL (NEG) Urine Ketones (Stick) Negative mg/dL (NEG) Urine Blood Negative (NEG) Urine Nitrite Negative (NEG) Urine Bilirubin Negative (NEG) Urine Urobilinogen Dipstick 1.0 mg/dL (0.2 mg/dL) Urine Leukocyte Esterase Negative (NEG) Urine RBC 0 /HPF (0-2) Urine WBC Occ /HPF (0-4) Urine Squamous Epithelial Cells Few /LPF Urine Bacteria 0 /HPF (0-FEW) Urine Mucus Slight /LPF Urine Opiates Screen Neg (NEG) Urine Methadone Screen Neg (NEG) Urine Barbiturates Neg (NEG) Urine Phencyclidine Screen Neg (NEG) Urine Amphetamine/Methamphetamine Neg (NEG) Urine Benzodiazepines Screen Neg (NEG) Urine Cocaine Screen Neg (NEG) Urine Cannabinoids Screen Pos (NEG) Urine Ethyl Alcohol Pos (NEG) Iron Level 224 ug/dL (65-175) Total Iron Binding Capacity 235 ug/dL (250-450) Iron Saturation 95 % (15-34) Tumor Marker Alpha Fetoprotein 12.3 ng/mL (0.0-8.3) Hepatitis A IgM Antibody Negative (Negative) Hepatitis B Surface Antigen Negative (Negative) Hepatitis B Core IgM Antibody Negative (Negative) Hepatitis C Antibody >11.0 s/co ratio Body Fluid Source Ascites Body Fluid Color Yellow Body Fluid Clarity Clear Body Fluid Nucleated Cells 60 /cmm Body Fluid Mononuclear WBCs (%) 65 % Body Fluid Polymorphonuclear Cells 33 % Body Fluid Total RBCs Counted 245 /cmm Body Fluid Other Cells (%) 2 % Laboratory Tests Test 10/09/16 13:50 Body Fluid Source Ascites Body Fluid Color Yellow Body Fluid Clarity Clear Body Fluid Nucleated Cells 60 /cmm Body Fluid Mononuclear WBCs (%) 65 % Body Fluid Polymorphonuclear Cells 33 % Body Fluid Total RBCs Counted 245 /cmm Body Fluid Other Cells (%) 2 % Microbiology 10/09/16 Gram Stain - Final, Complete Note abnormal iron studies, elevated AFP and positive HCV antibody. Medications Current Medications Fentanyl Citrate (Fentanyl 2ml Vial) 25 mcg PRN Q15MIN PRN IV PAIN GREATER THAN 3/10 Last administered on 10/08/16 14:19; Start 10/08/16 at 13:45; Stop at 13:44; Status DC Ondansetron HCl (Zofran) 4 mg 1X ONCE IV Last administered on 10/08/16 14:17 ; Start 10/08/16 at 13:45; Stop 10/08/16 at 13:46; Status DC Spironolactone (Aldactone) 25 mg DAILY PO ; Start 10/09/16 at 09:00; Stop at 09:33; Status DC Fentanyl Citrate (Fentanyl 2ml Vial) 50 mcg PRN Q2HR PRN IV pain Last administered on 10/09/16 17:39; Start 10/08/16 at 15:30 Ondansetron HCl (Zofran) 4 mg PRN Q6HRS PRN IV NAUSEA/VOMITING; Start 10/08/16 at 15:30 Pantoprazole Sodium (Protonix) 40 mg DAILY PO Last administered on 10/10/16 08 :15; Start 10/08/16 at 16:00 Multivitamins 10 ml/Thiamine HCl 100 mg/Folic Acid 1 mg/Sodium Chloride 1,011.2 ml @ 100 mls/ hr DAILY IV Last administered on 10/10/16 09:33; Start at 17:00; Stop 10/14/16 at 16:59 Chlordiazepoxide (Librium) 25 mg Q6H PO Last administered on 10/09/16 22:47; Start 10/08/16 at 16:45; Stop 10/09/16 at 22:46; Status DC Spironolactone (Aldactone) 100 mg DAILY PO Last administered on 10/10/16 08:15 ; Start 10/09/16 at 10:00 Lidocaine/Sodium Bicarbonate (Buffered Lidocaine 1%) 20 ml STK-MED ONCE IJ ; Start 10/09/16 at 13:26; Stop 10/09/16 at 13:27; Status DC Lidocaine/Sodium Bicarbonate (Buffered Lidocaine 1%) 3 ml 1X ONCE IJ Last administered on 10/09/16 14:00; Start 10/09/16 at 14:00; Stop 10/09/16 at 14:01 ; Status DC Albumin Human 200 ml @ As Directed STK-MED ONCE IV ; Start 10/09/16 at 13:53; Stop 10/09/16 at 13:54; Status DC Albumin Human 100 ml @ 100 mls/hr 1X ONCE IV Last administered on 10/09/16 14:30; Start 10/09/16 at 14:30; Stop 10/09/16 at 15:29; Status DC Albumin Human 100 ml @ 100 mls/hr 1X ONCE IV Last administered on 10/09/16 14:30; Start 10/09/16 at 14:30; Stop 10/09/16 at 15:29; Status DC Acetaminophen/ Hydrocodone Bitart (Lortab 5/325) 1 tab PRN Q6HRS PRN PO PAIN Last administered on 10/09/16 20:43; Start 10/09/16 at 20:30 Vitals/I & O Vital Sign - Last 24 Hours 10/09/16 10/09/16 10/09/16 10/09/16 11:00 15:00 17:39 18:09 Temp 98.6 98.6 98.6 98.6 Pulse 67 70 Resp 18 12 B/P (MAP) 141/65 (90) 139/70 (93) Pulse Ox 97 97 O2 Delivery Room Air Room Air Room Air Room Air 10/09/16 10/09/16 10/09/16 10/09/16 19:15 20:00 20:43 21:43 Temp 99.5 99.5 Pulse 67 Resp 18 16 16 B/P (MAP) 125/65 (85) Pulse Ox 95 95 95 O2 Delivery Room Air Room Air Room Air Room Air 10/09/16 10/10/16 10/10/16 10/10/16 23:13 03:17 07:00 07:05 Temp 98.9 98.6 98.3 98.9 98.6 98.3 Pulse 68 68 59 Resp 18 18 18 B/P (MAP) 116/63 (80) 120/62 (81) 106/58 (74) Pulse Ox 92 93 95 O2 Delivery Room Air Room Air Room Air Room Air Intake and Output 10/09/16 10/09/16 10/10/16 15:00 23:00 07:00 Intake Total 1120 ml 600 ml Output Total 89909 ml Balance -76677 ml 1120 ml 600 ml Problem List Problems Medical Problems: (1) Ascites Status: Acute Assessment Advanced liver disease. While likely alcohol, positive HCV Ab and abnormal iron studies (though abnormal irons may be seen with alcohol). Elevated AFP. Plan of Care Note HCV RNA by PCR. Hemochromatosis mutation assay. Better imaging of liver re: HCC? Continue diuresis. FLO HAMM MD October 10, 2016 10:31
[2016-10-10 11:00] VITALS: BP 105/55
[2016-10-10] MEDS ORDERED: IOHEXOL 240 MG/ML 50ML VIAL. PO ONE (11:00)
[2016-10-10] MEDS ORDERED: IOHEXOL 300 MG/ML 75 ML VIAL IV ONE (11:00)
[2016-10-10] MEDS ORDERED: CONTRAST GIVEN MC PRN (11:15)
--- NOTE | 2016-10-10 12:44 | RAD ---
EXAM: Abdomen and pelvis CT with intravenous contrast. HISTORY: Liver disease. TECHNIQUE: Computed tomographic images of the abdomen and pelvis were obtained following the administration of 75 cc Omnipaque 300 intravenous contrast. Multiplanar reformatting was performed. COMPARISON: 10/02/2016. FINDINGS: Evaluation of the lower thorax demonstrates a small left pleural effusion, increased compared to the prior study. There is left greater than right basilar and posterior dependent atelectasis, also increased compared to the prior study. There is an enlarged anterior pericardial lymph node measuring 1.1 cm, stable in appearance. There is hepatic surface nodularity due to cirrhosis. No focal hepatic lesion is seen. There is cholelithiasis. The gallbladder is contracted. The pancreas and adrenal glands are unremarkable. There is splenomegaly, measuring 16.5 cm. 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 The right kidney is unremarkable. The bladder is unremarkable. There is colonic diverticulosis without evidence of diverticulitis. There is no evidence of bowel obstruction. There is mild colonic wall thickening likely due to the presence of abdominal ascites. There is associated diffuse mesenteric stranding. There is an abdominal aortic aneurysm measuring 3.3 cm. There is no suspicious osseous lesion. IMPRESSION: 1. Hepatic cirrhosis. Note is made that liver MRI is more sensitive for small lesions in the setting of cirrhosis. 2. Moderate abdominal ascites, decreased compared to the recent study dated 10/02/2016. 3. Splenomegaly, consistent with portal hypertension. 4. Colonic diverticulosis without evidence of diverticular is. 5. Small left pleural effusion and left greater than right basilar and posterior dependent atelectasis, increased compared to the prior study. 6. Abdominal aortic aneurysm measuring 3.3 cm. 7. Prominent anterior pericardial and mesenteric lymph nodes, possibly reactive in etiology. PQRS Compliance Statement: One or more of the following individualized dose reduction techniques were utilized for this examination: 1. Automated exposure control 2. Adjustment of the mA and/or kV according to patient size 3. Use of iterative reconstruction technique
--- NOTE | 2016-10-10 13:13 | PDOC ---
PROGRESS NOTES Chief Complaint Chief Complaint 1. Tense, large ASCITES 2. Alcoholic lover dse by hx 3. Elevated LFTs and Total bili 4. Mid sigmoid diverticulosis no itis 5. 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 Heavy etohism 7. Plus 2 pitting edema History of Present Illness History of Present Illness Patient seen this am in in NAD. Patient wants to be D/C, but leaves it up to discretion of physician for D/C either today or tomorrow. Patient will continue banana bag until D/C. Patient understands plan of action. Vitals Vitals Vital Signs Date Time Temp Pulse Resp B/P (MAP) Pulse Ox O2 Delivery O2 Flow Rate FiO2 10/10/16 11:00 98.0 54 20 105/55 (72) 95 Room Air 98.0 Physical Exam General: Alert, Oriented X3, Cooperative, No acute distress Heart: Regular rate, Normal S1, Normal S2 Lungs: Clear Abdomen: Soft, No masses Extremities: No clubbing, No cyanosis, Other (plus 2 pitting edema) Skin: No rashes, No breakdown, No significant lesion Labs LABS Laboratory Tests Test 10/09/16 13:50 Body Fluid Source Ascites Body Fluid Color Yellow Body Fluid Clarity Clear Body Fluid Nucleated Cells 60 /cmm Body Fluid Mononuclear WBCs (%) 65 % Body Fluid Polymorphonuclear Cells 33 % Body Fluid Total RBCs Counted 245 /cmm Body Fluid Other Cells (%) 2 % Review of Systems Review of Systems No CADENA/blurry vision No rashes No vomiting Assessment and Plan Assessmemt and Plan Problems Medical Problems: (1) Ascites Status: Acute 2. Alcoholic lover dse by hx 3. Elevated LFTs and Total bili 4. Mid sigmoid diverticulosis no itis 5. 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 Heavy etohism 7. Plus 2 pitting edema Plan: -Continue current medications and adjust accordingly as needed. -Continue banana bag until D/C. -Continue speciality consultation. -Continue PT/OT if not D/C today (10/10/16). -D/C patient when specialties agree. Problems: Comment Review of Relevant I have reviewed the following items rajeev (where applicable) has been applied. Labs Laboratory Tests Test 10/08/16 13:47 10/08/16 17:55 10/09/16 10:00 10/09/16 13:50 White Blood Count 5.0 x10^3/uL (4.0-11.0) Red Blood Count 3.96 x10^6/uL (4.30-5.70) Hemoglobin 13.6 g/dL (13.0-17.5) Hematocrit 39.2 % (39.0-53.0) Mean Corpuscular Volume 99 fL (79-100) Mean Corpuscular Hemoglobin 34 pg (25-35) Mean Corpuscular Hemoglobin Concent 35 g/dL (31-37) Red Cell Distribution Width 14.3 % (11.5-14.5) Platelet Count 78 x10^3/uL (140-400) Neutrophils (%) (Auto) 62 % (31-73) Lymphocytes (%) (Auto) 23 % (24-48) Monocytes (%) (Auto) 12 % (0-9) Eosinophils (%) (Auto) 3 % (0-3) Basophils (%) (Auto) 1 % (0-3) Neutrophils # (Auto) 3.1 x10^3uL (1.8-7.7) Lymphocytes # (Auto) 1.1 x10^3/uL (1.0-4.8) Monocytes # (Auto) 0.6 x10^3/uL (0.0-1.1) Eosinophils # (Auto) 0.1 x10^3/uL (0.0-0.7) Basophils # (Auto) 0.1 x10^3/uL (0.0-0.2) Prothrombin Time 15.3 SEC (11.7-14.0) Prothromb Time International Ratio 1.3 (0.8-1.1) Activated Partial Thromboplast Time 32 SEC (24-38) Sodium Level 142 mmol/L (136-145) Potassium Level 4.1 mmol/L (3.5-5.1) Chloride Level 108 mmol/L (98-107) Carbon Dioxide Level 26 mmol/L (21-32) Anion Gap 8 (6-14) Blood Urea Nitrogen 6 mg/dL (8-26) Creatinine 0.8 mg/dL (0.7-1.3) Estimated GFR (Cockcroft-Gault) 97.6 BUN/Creatinine Ratio 8 (6-20) Glucose Level 97 mg/dL (70-99) Calcium Level 8.1 mg/dL (8.5-10.1) Total Bilirubin 1.9 mg/dL (0.2-1.0) Aspartate Amino Transf (AST/SGOT) 75 U/L (15-37) Alanine Aminotransferase (ALT/SGPT) 32 U/L (16-63) Alkaline Phosphatase 149 U/L (46-116) Troponin I Quantitative < 0.017 ng/mL (0.000-0.055) Total Protein 6.4 g/dL (6.4-8.2) 6.2 g/dL (6.4-8.2) Albumin 2.6 g/dL (3.4-5.0) 2.7 g/dL (3.4-5.0) Albumin/Globulin Ratio 0.7 (1.0-1.7) Lipase 97 U/L (73-393) Urine Collection Type Unknown Urine Color Yellow Urine Clarity Clear Urine pH 6.0 Urine Specific [place] 1.010 Urine Protein Negative mg/dL (NEG-TRACE) Urine Glucose (UA) Negative mg/dL (NEG) Urine Ketones (Stick) Negative mg/dL (NEG) Urine Blood Negative (NEG) Urine Nitrite Negative (NEG) Urine Bilirubin Negative (NEG) Urine Urobilinogen Dipstick 1.0 mg/dL (0.2 mg/dL) Urine Leukocyte Esterase Negative (NEG) Urine RBC 0 /HPF (0-2) Urine WBC Occ /HPF (0-4) Urine Squamous Epithelial Cells Few /LPF Urine Bacteria 0 /HPF (0-FEW) Urine Mucus Slight /LPF Urine Opiates Screen Neg (NEG) Urine Methadone Screen Neg (NEG) Urine Barbiturates Neg (NEG) Urine Phencyclidine Screen Neg (NEG) Urine Amphetamine/Methamphetamine Neg (NEG) Urine Benzodiazepines Screen Neg (NEG) Urine Cocaine Screen Neg (NEG) Urine Cannabinoids Screen Pos (NEG) Urine Ethyl Alcohol Pos (NEG) Iron Level 224 ug/dL (65-175) Total Iron Binding Capacity 235 ug/dL (250-450) Iron Saturation 95 % (15-34) Tumor Marker Alpha Fetoprotein 12.3 ng/mL (0.0-8.3) Hepatitis A IgM Antibody Negative (Negative) Hepatitis B Surface Antigen Negative (Negative) Hepatitis B Core IgM Antibody Negative (Negative) Hepatitis C Antibody >11.0 s/co ratio Body Fluid Source Ascites Body Fluid Color Yellow Body Fluid Clarity Clear Body Fluid Nucleated Cells 60 /cmm Body Fluid Mononuclear WBCs (%) 65 % Body Fluid Polymorphonuclear Cells 33 % Body Fluid Total RBCs Counted 245 /cmm Body Fluid Other Cells (%) 2 % Laboratory Tests Test 10/09/16 13:50 Body Fluid Source Ascites Body Fluid Color Yellow Body Fluid Clarity Clear Body Fluid Nucleated Cells 60 /cmm Body Fluid Mononuclear WBCs (%) 65 % Body Fluid Polymorphonuclear Cells 33 % Body Fluid Total RBCs Counted 245 /cmm Body Fluid Other Cells (%) 2 % Microbiology 10/09/16 Anaerobic/Aerobic Culture, Resulted Pending 10/09/16 Anaerobic Culture Result 1 (MICHAELA), Resulted Pending 10/09/16 Aerobic Culture - Preliminary, Resulted 10/09/16 Aerobic Culture Result 1 (MICHAELA) - Preliminary, Resulted Medications Current Medications Fentanyl Citrate (Fentanyl 2ml Vial) 25 mcg PRN Q15MIN PRN IV PAIN GREATER THAN 3/10 Last administered on 10/08/16 14:19; Start 10/08/16 at 13:45; Stop at 13:44; Status DC Ondansetron HCl (Zofran) 4 mg 1X ONCE IV Last administered on 10/08/16 14:17 ; Start 10/08/16 at 13:45; Stop 10/08/16 at 13:46; Status DC Spironolactone (Aldactone) 25 mg DAILY PO ; Start 10/09/16 at 09:00; Stop at 09:33; Status DC Fentanyl Citrate (Fentanyl 2ml Vial) 50 mcg PRN Q2HR PRN IV pain Last administered on 10/09/16 17:39; Start 10/08/16 at 15:30 Ondansetron HCl (Zofran) 4 mg PRN Q6HRS PRN IV NAUSEA/VOMITING; Start 10/08/16 at 15:30 Pantoprazole Sodium (Protonix) 40 mg DAILY PO Last administered on 10/10/16 08 :15; Start 10/08/16 at 16:00 Multivitamins 10 ml/Thiamine HCl 100 mg/Folic Acid 1 mg/Sodium Chloride 1,011.2 ml @ 100 mls/ hr DAILY IV Last administered on 10/10/16 09:33; Start at 17:00; Stop 10/14/16 at 16:59 Chlordiazepoxide (Librium) 25 mg Q6H PO Last administered on 10/09/16 22:47; Start 10/08/16 at 16:45; Stop 10/09/16 at 22:46; Status DC Spironolactone (Aldactone) 100 mg DAILY PO Last administered on 10/10/16 08:15 ; Start 10/09/16 at 10:00 Lidocaine/Sodium Bicarbonate (Buffered Lidocaine 1%) 20 ml STK-MED ONCE IJ ; Start 10/09/16 at 13:26; Stop 10/09/16 at 13:27; Status DC Lidocaine/Sodium Bicarbonate (Buffered Lidocaine 1%) 3 ml 1X ONCE IJ Last administered on 10/09/16 14:00; Start 10/09/16 at 14:00; Stop 10/09/16 at 14:01 ; Status DC Albumin Human 200 ml @ As Directed STK-MED ONCE IV ; Start 10/09/16 at 13:53; Stop 10/09/16 at 13:54; Status DC Albumin Human 100 ml @ 100 mls/hr 1X ONCE IV Last administered on 10/09/16 14:30; Start 10/09/16 at 14:30; Stop 10/09/16 at 15:29; Status DC Albumin Human 100 ml @ 100 mls/hr 1X ONCE IV Last administered on 10/09/16 14:30; Start 10/09/16 at 14:30; Stop 10/09/16 at 15:29; Status DC Acetaminophen/ Hydrocodone Bitart (Lortab 5/325) 1 tab PRN Q6HRS PRN PO PAIN Last administered on 10/09/16 20:43; Start 10/09/16 at 20:30 Iohexol (Omnipaque 240 Mg/ml) 50 ml 1X ONCE PO Last administered on 10/10/16 11:00; Start 10/10/16 at 11:00; Stop 10/10/16 at 11:01; Status DC Iohexol (Omnipaque 300 Mg/ml) 75 ml 1X ONCE IV Last administered on 10/10/16 12:07; Start 10/10/16 at 11:00; Stop 10/10/16 at 11:01; Status DC Info (Do NOT chart on this entry -- for MONITORING) 1 each PRN DAILY PRN MC SEE COMMENTS; Start 10/10/16 at 11:15; Stop 10/12/16 at 11:14 Vitals/I & O Vital Sign - Last 24 Hours 10/09/16 10/09/16 10/09/16 10/09/16 15:00 17:39 18:09 19:15 Temp 98.6 99.5 98.6 99.5 Pulse 70 67 Resp 12 18 B/P (MAP) 139/70 (93) 125/65 (85) Pulse Ox 97 95 O2 Delivery Room Air Room Air Room Air Room Air 10/09/16 10/09/16 10/09/16 10/09/16 20:00 20:43 21:43 23:13 Temp 98.9 98.9 Pulse 68 Resp 16 16 18 B/P (MAP) 116/63 (80) Pulse Ox 95 95 92 O2 Delivery Room Air Room Air Room Air Room Air 10/10/16 10/10/16 10/10/16 10/10/16 03:17 07:00 07:05 11:00 Temp 98.6 98.3 98.0 98.6 98.3 98.0 Pulse 68 59 54 Resp 18 18 20 B/P (MAP) 120/62 (81) 106/58 (74) 105/55 (72) Pulse Ox 93 95 95 O2 Delivery Room Air Room Air Room Air Room Air Intake and Output 10/09/16 10/09/16 10/10/16 15:00 23:00 07:00 Intake Total 1120 ml 600 ml Output Total 81861 ml Balance -55969 ml 1120 ml 600 ml RAIN MAYA III DO October 10, 2016 13:13
[2016-10-10 15:00] VITALS: BP 105/52
[2016-10-10 17:10] LABS: BODY FLUID ALBUMIN 0.7 g/dL (.)
[2016-10-10 19:10] VITALS: BP 118/55
[2016-10-10] MEDS: HYDROcodone/APAP 5/325MG 1 TAB TABLET PO PRN (21:31)
[2016-10-10 23:05] VITALS: BP 102/51
[2016-10-11 03:30] VITALS: BP 103/56
[2016-10-11 07:00] VITALS: BP 118/77
[2016-10-11] MEDS: SPIRONOLACTONE 25 MG TABLET PO SCH (09:32)
[2016-10-11] MEDS: PANTOPRAZOLE 40 MG TABLET.DR. PO SCH (09:32)
[2016-10-11] MEDS: MULTIVIT INFUSN,ADULT 4,VIT K 10 ML, THIAMINE 100 MG, FOLIC ACID 1 MG in IV NORMAL SALI... IV SCH (09:33)
--- NOTE | 2016-10-11 09:43 | PDOC ---
G I PROGRESS NOTE Subjective No complaints. Physical Exam Lungs clear. RRR Abdomen soft; some reaccumulating ascites. No LE edema. Review of Relevant I have reviewed the following items rajeev (where applicable) has been applied. Labs Laboratory Tests Test 10/09/16 10:00 10/09/16 13:50 Iron Level 224 ug/dL (65-175) Total Iron Binding Capacity 235 ug/dL (250-450) Iron Saturation 95 % (15-34) Total Protein 6.2 g/dL (6.4-8.2) Albumin 2.7 g/dL (3.4-5.0) Tumor Marker Alpha Fetoprotein 12.3 ng/mL (0.0-8.3) Hepatitis A IgM Antibody Negative (Negative) Hepatitis B Surface Antigen Negative (Negative) Hepatitis B Core IgM Antibody Negative (Negative) Hepatitis C Antibody >11.0 s/co ratio Body Fluid Source Ascites Body Fluid Color Yellow Body Fluid Clarity Clear Body Fluid Nucleated Cells 60 /cmm Body Fluid Mononuclear WBCs (%) 65 % Body Fluid Polymorphonuclear Cells 33 % Body Fluid Total RBCs Counted 245 /cmm Body Fluid Other Cells (%) 2 % Body Fluid Total Protein 1.1 g/dL (.) Body Fluid Albumin 0.7 g/dL (.) Microbiology 10/09/16 Anaerobic/Aerobic Culture, Resulted Pending 10/09/16 Anaerobic Culture Result 1 (MICHAELA), Resulted Pending 10/09/16 Aerobic Culture - Preliminary, Resulted 10/09/16 Aerobic Culture Result 1 (MICHAELA) - Preliminary, Resulted Hemochromatosis assay pending. Unable to order HCV RNA by PCR. Medications Current Medications Fentanyl Citrate (Fentanyl 2ml Vial) 25 mcg PRN Q15MIN PRN IV PAIN GREATER THAN 3/10 Last administered on 10/08/16 14:19; Start 10/08/16 at 13:45; Stop at 13:44; Status DC Ondansetron HCl (Zofran) 4 mg 1X ONCE IV Last administered on 10/08/16 14:17 ; Start 10/08/16 at 13:45; Stop 10/08/16 at 13:46; Status DC Spironolactone (Aldactone) 25 mg DAILY PO ; Start 10/09/16 at 09:00; Stop at 09:33; Status DC Fentanyl Citrate (Fentanyl 2ml Vial) 50 mcg PRN Q2HR PRN IV pain Last administered on 10/09/16 17:39; Start 10/08/16 at 15:30 Ondansetron HCl (Zofran) 4 mg PRN Q6HRS PRN IV NAUSEA/VOMITING; Start 10/08/16 at 15:30 Pantoprazole Sodium (Protonix) 40 mg DAILY PO Last administered on 10/11/16 09 :32; Start 10/08/16 at 16:00 Multivitamins 10 ml/Thiamine HCl 100 mg/Folic Acid 1 mg/Sodium Chloride 1,011.2 ml @ 100 mls/ hr DAILY IV Last administered on 10/11/16 09:33; Start at 17:00; Stop 10/14/16 at 16:59 Chlordiazepoxide (Librium) 25 mg Q6H PO Last administered on 10/09/16 22:47; Start 10/08/16 at 16:45; Stop 10/09/16 at 22:46; Status DC Spironolactone (Aldactone) 100 mg DAILY PO Last administered on 10/11/16 09:32 ; Start 10/09/16 at 10:00 Lidocaine/Sodium Bicarbonate (Buffered Lidocaine 1%) 20 ml STK-MED ONCE IJ ; Start 10/09/16 at 13:26; Stop 10/09/16 at 13:27; Status DC Lidocaine/Sodium Bicarbonate (Buffered Lidocaine 1%) 3 ml 1X ONCE IJ Last administered on 10/09/16 14:00; Start 10/09/16 at 14:00; Stop 10/09/16 at 14:01 ; Status DC Albumin Human 200 ml @ As Directed STK-MED ONCE IV ; Start 10/09/16 at 13:53; Stop 10/09/16 at 13:54; Status DC Albumin Human 100 ml @ 100 mls/hr 1X ONCE IV Last administered on 10/09/16 14:30; Start 10/09/16 at 14:30; Stop 10/09/16 at 15:29; Status DC Albumin Human 100 ml @ 100 mls/hr 1X ONCE IV Last administered on 10/09/16 14:30; Start 10/09/16 at 14:30; Stop 10/09/16 at 15:29; Status DC Acetaminophen/ Hydrocodone Bitart (Lortab 5/325) 1 tab PRN Q6HRS PRN PO PAIN Last administered on 10/10/16 21:31; Start 10/09/16 at 20:30 Iohexol (Omnipaque 240 Mg/ml) 50 ml 1X ONCE PO Last administered on 10/10/16 11:00; Start 10/10/16 at 11:00; Stop 10/10/16 at 11:01; Status DC Iohexol (Omnipaque 300 Mg/ml) 75 ml 1X ONCE IV Last administered on 10/10/16 12:07; Start 10/10/16 at 11:00; Stop 10/10/16 at 11:01; Status DC Info (Do NOT chart on this entry -- for MONITORING) 1 each PRN DAILY PRN MC SEE COMMENTS; Start 10/10/16 at 11:15; Stop 10/12/16 at 11:14 Vitals/I & O Vital Sign - Last 24 Hours 10/10/16 10/10/16 10/10/16 10/10/16 11:00 15:00 19:10 23:05 Temp 98.0 94.4 98.1 98.5 98.0 94.4 98.1 98.5 Pulse 54 60 57 53 Resp 20 20 20 18 B/P (MAP) 105/55 (72) 105/52 (69) 118/55 (76) 102/51 (68) Pulse Ox 95 96 95 96 O2 Delivery Room Air Room Air Room Air Room Air 10/11/16 10/11/16 03:30 07:00 Temp 98.3 98.3 Pulse 55 56 Resp 18 16 B/P (MAP) 103/56 (72) 118/77 (91) Pulse Ox 95 97 O2 Delivery Room Air Room Air Intake and Output 10/10/16 10/10/16 10/11/16 15:00 23:00 07:00 Intake Total 360 ml 1200 ml 600 ml Balance 360 ml 1200 ml 600 ml Images Abnormal (probably cirrhotic) liver/biggish spleen/ascites, otherwise no new info on CT. Problem List Problems Medical Problems: (1) Ascites Status: Acute Assessment CLD, likely cirrhotic and likely alcohol, but possibly HCV and/or iron overload. Plan of Care: Continue current Tx, Mgmt Plan of Care Note Seems OK for discharge at your discretion. Gave info re: the HCV assay for PCP to draw since can't get here. FLO HAMM MD October 11, 2016 09:43
[2016-10-11 11:05] VITALS: BP 123/51
--- NOTE | 2016-10-11 14:19 | PDOC ---
PROGRESS NOTES Chief Complaint Chief Complaint 1. Tense, large ASCITES 2. Alcoholic lover dse by hx 3. Elevated LFTs and Total bili 4. Mid sigmoid diverticulosis no itis 5. 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 Heavy etohism 7. Plus 2 pitting edema History of Present Illness History of Present Illness Patient seen this am in in NAD. Patient will be D/C today. Patient will continue banana bag until D/C. Patient said he hasn't had a bowel movement since fluid removal. Educated patient on getting OTC laxative. Patient understands plan of action. Vitals Vitals Vital Signs Date Time Temp Pulse Resp B/P (MAP) Pulse Ox O2 Delivery O2 Flow Rate FiO2 10/11/16 11:05 98.2 62 20 123/51 (75) 95 Room Air 98.2 Physical Exam General: Alert, Oriented X3, Cooperative, No acute distress Heart: Regular rate, Normal S1, Normal S2 Lungs: Clear Abdomen: Soft, No masses Extremities: No clubbing, No cyanosis, Other (plus 2 pitting edema) Skin: No rashes, No breakdown, No significant lesion Review of Systems Review of Systems No CADENA/blurry vision No rashes Assessment and Plan Assessmemt and Plan Problems Medical Problems: (1) Ascites Status: Acute 2. Tense, large ASCITES 3. Alcoholic lover dse by hx 4. Elevated LFTs and Total bili 5. Mid sigmoid diverticulosis no itis 6. 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 Heavy etohism 8. Plus 2 pitting edema Plan: -Continue current medications and adjust accordingly as needed. -Continue banana bag until D/C. -Continue PT/OT until D/C. -Continue specialty consultation. -D/C when all specialties agree. Problems: Comment Review of Relevant I have reviewed the following items rajeev (where applicable) has been applied. Labs Microbiology 10/09/16 Anaerobic/Aerobic Culture, Resulted Pending 10/09/16 Anaerobic Culture Result 1 (MICHAELA), Resulted Pending 10/09/16 Aerobic Culture - Preliminary, Resulted 10/09/16 Aerobic Culture Result 1 (MICHAELA) - Preliminary, Resulted Medications Current Medications Fentanyl Citrate (Fentanyl 2ml Vial) 25 mcg PRN Q15MIN PRN IV PAIN GREATER THAN 3/10 Last administered on 10/08/16t 14:19; Start 10/08/16 at 13:45; Stop at 13:44; Status DC Ondansetron HCl (Zofran) 4 mg 1X ONCE IV Last administered on 10/08/16 14:17 ; Start 10/08/16 at 13:45; Stop 10/08/16 at 13:46; Status DC Spironolactone (Aldactone) 25 mg DAILY PO ; Start 10/09/16 at 09:00; Stop at 09:33; Status DC Fentanyl Citrate (Fentanyl 2ml Vial) 50 mcg PRN Q2HR PRN IV pain Last administered on 10/09/16 17:39; Start 10/08/16 at 15:30 Ondansetron HCl (Zofran) 4 mg PRN Q6HRS PRN IV NAUSEA/VOMITING; Start 10/08/16 at 15:30 Pantoprazole Sodium (Protonix) 40 mg DAILY PO Last administered on 10/11/16 09 :32; Start 10/08/16 at 16:00 Multivitamins 10 ml/Thiamine HCl 100 mg/Folic Acid 1 mg/Sodium Chloride 1,011.2 ml @ 100 mls/ hr DAILY IV Last administered on 10/11/16 09:33; Start at 17:00; Stop 10/14/16 at 16:59 Chlordiazepoxide (Librium) 25 mg Q6H PO Last administered on 10/09/16 22:47; Start 10/08/16 at 16:45; Stop 10/09/16 at 22:46; Status DC Spironolactone (Aldactone) 100 mg DAILY PO Last administered on 10/11/16 09:32 ; Start 10/09/16 at 10:00 Lidocaine/Sodium Bicarbonate (Buffered Lidocaine 1%) 20 ml STK-MED ONCE IJ ; Start 10/09/16 at 13:26; Stop 10/09/16 at 13:27; Status DC Lidocaine/Sodium Bicarbonate (Buffered Lidocaine 1%) 3 ml 1X ONCE IJ Last administered on 10/09/16 14:00; Start 10/09/16 at 14:00; Stop 10/09/16 at 14:01 ; Status DC Albumin Human 200 ml @ As Directed STK-MED ONCE IV ; Start 10/09/16 at 13:53; Stop 10/09/16 at 13:54; Status DC Albumin Human 100 ml @ 100 mls/hr 1X ONCE IV Last administered on 10/09/16 14:30; Start 10/09/16 at 14:30; Stop 10/09/16 at 15:29; Status DC Albumin Human 100 ml @ 100 mls/hr 1X ONCE IV Last administered on 10/09/16 14:30; Start 10/09/16 at 14:30; Stop 10/09/16 at 15:29; Status DC Acetaminophen/ Hydrocodone Bitart (Lortab 5325) 1 tab PRN Q6HRS PRN PO PAIN Last administered on 10/10/16 21:31; Start 10/09/16 at 20:30 Iohexol (Omnipaque 240 Mg/ml) 50 ml 1X ONCE PO Last administered on 10/10/16 11:00; Start 10/10/16 at 11:00; Stop 10/10/16 at 11:01; Status DC Iohexol (Omnipaque 300 Mg/ml) 75 ml 1X ONCE IV Last administered on 10/10/16 12:07; Start 10/10/16 at 11:00; Stop 10/10/16 at 11:01; Status DC Info (Do NOT chart on this entry -- for MONITORING) 1 each PRN DAILY PRN MC SEE COMMENTS; Start 10/10/16 at 11:15; Stop 10/12/16 at 11:14 Active Scripts Active No Active Prescriptions or Reported Medications Vitals/I & O Vital Sign - Last 24 Hours 10/10/16 10/10/16 10/10/16 10/11/16 15:00 19:10 23:05 03:30 Temp 94.4 98.1 98.5 94.4 98.1 98.5 Pulse 60 57 53 55 Resp 20 20 18 18 B/P (MAP) 105/52 (69) 118/55 (76) 102/51 (68) 103/56 (72) Pulse Ox 96 95 96 95 O2 Delivery Room Air Room Air Room Air Room Air 10/11/16 10/11/16 10/11/16 07:00 07:55 11:05 Temp 98.3 98.2 98.3 98.2 Pulse 56 62 Resp 16 20 B/P (MAP) 118/77 (91) 123/51 (75) Pulse Ox 97 95 O2 Delivery Room Air Room Air Room Air O2 Flow Rate Intake and Output 10/10/16 10/10/16 10/11/16 15:00 23:00 07:00 Intake Total 360 ml 1200 ml 600 ml Balance 360 ml 1200 ml 600 ml RAIN MAYA III DO October 11, 2016 14:19
[2016-10-11] MEDS ORDERED: SPIR100T2 PO (14:26)
--- NOTE | 2016-10-17 22:15 | DS ---
DATE OF DISCHARGE: 10/11/2016 ADMISSION DIAGNOSES: Abdominal pain, splenomegaly, 3.3 cm abdominal aortic aneurysm, ascites, cirrhosis, alcohol. DISCHARGE DIAGNOSIS: Status post procedure of 14 liters of paracentesis. HOSPITAL COURSE: The patient is a pleasant 61-year-old male presented with massive ascites. He has known hep C and cirrhosis and alcohol basically. We brought him in, we tapped him, we got 14 liters off. Now he is at his baseline. We plan to discharge. DISPOSITION: Home. ACTIVITY: As tolerated. DIET: Hepatic. MEDICATIONS: Please see the MRAD. TOTAL TIME ON DISCHARGE: 32 minutes. RAIN MAYA DO DR: CLOTILDE/edgard JOB#: [id number] / [id number]
== END 2016-10-11 14:50 | disposition home or self-care (01) | DRG 432 ==
LOC: ER 13:06 → 4 NORTH 16:25
PROVIDERS: ADMIT Internal Medicine; ATTEND Internal Medicine
PROC: 0W9G3ZX Drainage of Peritoneal Cavity, Percutaneous Approach, Diagnostic (ICD-10-PCS; principal; 2016-10-09)
DX: K70.31 Alcoholic cirrhosis of liver with ascites (principal); E43 Unspecified severe protein-calorie malnutrition; K76.6 Portal hypertension; E78.00 Pure hypercholesterolemia, unspecified; D69.6 Thrombocytopenia, unspecified; E83.119 Hemochromatosis, unspecified; E78.5 Hyperlipidemia, unspecified; K57.30 Diverticulosis of large intestine without perforation or abscess without bleeding; I10 Essential (primary) hypertension; F10.20 Alcohol dependence, uncomplicated; J44.9 Chronic obstructive pulmonary disease, unspecified; K76.9 Liver disease, unspecified; Z79.82 Long term (current) use of aspirin; Z79.899 Other long term (current) drug therapy
CPT/HCPCS: 36415; 49083; 74022; 74177; 76705; 80053; 80074; 81001; 81256; 82040; 82042; 82105; 83540; 83550; 83690; 84155; 84157; 84484; 85027; 85610; 85730; 87071; 87075; 87205; 88112; 88305; 89050; 93005; 96374; 96375; A4215; C1729; C1892; C1894; G0481; J2405; J3010; J7030; P9046; Q9966; Q9967; 99285-25